=== PATIENT | female | born 1940 | race Caucasian/White ===

== ENCOUNTER 2023-04-27 10:26 | Emergency (ER) | payer MEDICARE, BC, SELFPAY ==
[2023-04-27 10:37] VITALS: BP 142/65
[2023-04-27 10:39] VITALS: BP 142/65
--- NOTE | 2023-04-27 10:39 | ED.GENMED ---
History of Present Illness
General
Chief Complaint: Back Pain
Source: patient
Exam Limitations: none
Time Seen by Provider: 04/27/23 10:38
Nursing documentation reviewed up to this point in time: agreed with
Travel History
Have you had any contact with someone who has COVID-19?: No
Do you have any symptoms of coronavirus? Fever > 100 degrees, chills, cough, shortness of breath, sore throat, loss of taste or smell, muscle aches, or headache?: No
History of Present Illness
History of Present Illness:
82-year-old female with history of Afib on eliquis, COPD, lung cancer, pleural effusions in the past with thoracentesis, chronic cough, home oxygen 3 L nasal cannula, pneumonia, from home is here for stabbing left mid to upper back pain 'at my bra
line' starting 2 days ago. No recollection of injury. States she cleaned her bedroom 2 days ago and change of the linens.
Patient is followed at [facility].
She denies fever or chills. Denies abdominal pain.
Past History
Past History
ED Past Medical History: Cancer (lung), CHF, COPD, HTN, Hypothyroidism, Other (Pulmonary HTN, Anemia, PNA, R pleural effusion) and Other (CKD); Negative [place]
ED Past Surgical History: Appendectomy, Gynecological and Other (thyroidectomy, AAA repair)
Social History
Tobacco: Former smoker
Alcohol: None
Drug: None
Personal:
Living: with family (daughter is staying with her)
Employment: Retired
Family History
Family History: Other (With lymphoma grandfather with lung cancer, grandfather with diabetes, father with a stroke )
Review of Systems
Review of Systems
Allergies reviewed?: Yes
All Other Systems: ROS reviewed and negative except as documented in HPI and ROS
Constitutional: Reports fatigue; Denies fever
Respiratory: Reports cough and trouble breathing
Cardiac: Denies chest pain
ABD/GI: Denies abdominal pain, nausea, vomiting or diarrhea
: Denies dysuria or difficulty voiding
Musculoskeletal: Denies edema
Skin: Reports no symptoms
Neurological: Reports no symptoms
Phy Exam
Physical Exam
Physical Exam:
GENERAL: No acute distress. A&Ox3.
CONSTITUTIONAL: Afebrile.
EYES: Clear, conjunctivae normal
ENMT: moist mucus membranes, Pharynx nl
RESPIRATORY: Regular respirations, labored respirations . Lungs with expiratory rhonchi throughout, worse in the right upper region. 3 L nasal cannula O2 chronically
CARDIOVASCULAR: Regular rate and rhythm, no murmurs, no rubs.
GI: Soft, nontender, normal BS
MUSCULOSKELETAL: Significant kyphosis. Tender upper left parathoracic area. Moves with ease. Well perfused.
SKIN: Warm, dry, pale
PSYCH: Normal mood and affect. Well kept, interactive and appropriate
NEUROLOGIC: Awake, alert and oriented. No focal neurological deficits. Ambulated independently to BR and back slowly but steadily
Course
Orders/Labs/Results
Orders:
Orders
04/27/23 10:31
EKG [Electrocardiogram (*1)] Urgent
Reason for Study: Chest Pain
EKG- Treatment ONCE
04/27/23 10:39
CR Chest - 2 Views Urgent
Comment:
Reason For Exam: L mid to upper back pain
04/27/23 10:47
Complete Blood Count/With Diff Urgent
Comprehensive Metabolic Panel Urgent
NT-proBNP Urgent
Troponin I Urgent
04/27/23 11:37
Hydrocodone 5/APAP 325 [[place] 5/325] 1 tablet PO NOW STA
Abnormal Lab Results
04/27/23
10:47
RBC 3.69 L 10^6/uL
(4.20-5.40)
Hgb 11.5 L g/dL
(12.0-16.0)
Hct 35.6 L %
(37.0-47.0)
MCH 31.2 H pg
(27.0-31.0)
MCHC 32.3 L g/dL
(33.0-37.0)
RDW 16.1 H %
(11.5-14.5)
Abs Immat Gran (auto) 0.1 H 10^3/uL
(0-0.05)
Absolute Neuts (auto) 8.9 H 10^3/uL
(1.4-6.5)
Absolute Lymphs (auto) 0.5 L 10^3/uL
(1.2-3.4)
Absolute Monos (auto) 0.7 H 10^3/uL
(0.1-0.6)
Immature Gran % 0.6 H %
(0-0.5)
Neutrophils % 86.0 H %
(42.2-75.2)
Lymphocytes % 4.7 L %
(20.5-51.1)
Carbon Dioxide 32 H mmol/L
(22-30)
BUN 33 H mg/dl
(7-17)
Total Protein 5.9 L g/dl
(6.3-8.2)
Albumin 3.2 L g/dl
(3.5-5.0)
04/27/23 10:47
04/27/23 10:47
Vital Signs
Initial and Last Documented VS:
Initial Vital Signs
Temp Pulse Resp BP Pulse Ox
98.6 F 63 16 142/65 99
04/27/23 10:37 04/27/23 10:37 04/27/23 10:37 04/27/23 10:37 04/27/23 10:37
Last Documented Vital Signs
Temp Pulse Resp BP Pulse Ox
98.4 F 64 15 136/60 99
04/27/23 14:02 04/27/23 14:02 04/27/23 14:02 04/27/23 14:02 04/27/23 14:02
MDM/Problems Addressed
Differential Diagnosis Includes:
COPD exacerbation, pneumonia, pleural effusion, AAA, thoracic vertebrae fracture
MDM/Problems Addressed:
82-year-old female with history of Afib on Eliquis, COPD, lung cancer, pleural effusions in the past with thoracentesis, chronic cough, home oxygen 3 L nasal cannula, pneumonia, from home is here for stabbing left mid to upper back pain at my bra
line' starting 2 days ago. No recollection of injury. States she cleaned her bedroom 2 days ago and change of the linens.
Patient is followed at [facility].
She denies fever or chills. Denies abdominal pain.
04/27/2023 1159 AM
CBC with no clinically significant abnormality
CMP with no clinically significant abnormality. BUN 33 which is slightly higher than her baseline. Encouraged her to increase her fluid intake
Chest x-ray: Radiology report read: IMPRESSION:
Stable mild CHF and [id number] right pleural effusion. Probable chronic right perihilar scarring.
There is a new mild T6 compression deformity. Pt states 'it doesn't take much for me to fracture a vertebrae.' Pain associated with changing her linens 2 days ago as most likely cause.
In further discussion with patient, she was supposed to see pain management but she was told she has to get an MRI first. She has canceled 2 previous MRI appointments. I put her on the phone today to make an appointment.
Patient states gabapentin and tramadol 'do nothing' for her pain. I gave her a Vicodin here and will call her prescription for hydrocodone No. 6 tabs to her pharmacy to get her through the weekend. She has a caregiver at bedside who will stay with
her for the next 2 days.
Clinically she is not fluid overloaded, she is in fact, most likely mildly dehydrated with elevated BUN.
Plan: discharge, keep MRI and pain management appointments, short regimen of Hydrocodone
*Critical Care Note
Total Time (30-74mins, 75-104mins- exclusive of procedures): Not Applicable
ED Attending Note
-
Portions of this chart may have been created with voice recognition software.� Occasional wrong word or��sound alike� substitutions may have occurred due to the inherent limitations of voice recognition software.
Discharge Plan
Departure
Patient Disposition: Home (Routine Discharge)
Date of Disposition: 04/27/23
Time of Disposition: 12:07
Patient with high blood pressure during this ER visit?: No
Condition: Fair
Discharge Problem:
Compression fracture of T6 vertebra
Instructions: Vertebral compression fracture
Prescriptions:
New
hydrocodone-acetaminophen 5-325 mg tablet
1 tab PO Q6H PRN (Reason: Pain) Qty: 7 0RF
No Action
ipratropium bromide 1 SPRAY spray,non-aerosol
2 spray intranasal TID
albuterol sulfate 1 PUFF HFA aerosol inhaler
2 puff inhalation R Q4HPRN PRN (Reason: shortness of breath)
ydiibqukfav-gvphpdlgp-wulnuuhs [Trelegy Ellipta] 1 EACH blister with device
1 puff inhalation R DAILY
bisacodyl [OneLAX Bisacodyl] 10 MG suppository
10 mg AR DAILYPRN PRN (Reason: constipation) 0RF
fexofenadine [Griselda] 180 MG tablet
180 mg PO DAILY Qty: 0
polyethylene glycol 3350 17 GRAMS powder in packet
17 grams PO DAILYPRN PRN (Reason: constipation)
acetaminophen [Tylenol Extra Strength] 500 MG tablet
500 mg PO Q6HPRN PRN (Reason: mild pain/fever)
atorvastatin 40 MG tablet
40 mg PO QPM
sucralfate 1 GRAM tablet
1 g PO BID@1200,1700
Patient Comments:
must be crushed into applesauce
tamsulosin 0.4 MG capsule
0.4 mg PO DAILY
ferrous sulfate [FeroSul] 325 MG tablet
325 mg PO DAILY@1200
furosemide 40 MG tablet
40 mg PO DAILY Qty: 30 0RF
ipratropium-albuterol 3 ML solution for nebulization
3 ml inhalation R Q4HPRN PRN (Reason: sob)
gabapentin 300 MG capsule
300 mg PO TID
apixaban [Eliquis] 5 MG tablet
5 mg PO BID 0RF
diltiazem HCl 180 MG capsule,extended release 24hr
180 mg PO DAILY
aspirin 81 MG tablet,delayed release (DR/EC)
81 mg PO DAILY
denosumab [Prolia] 60 MG/ML syringe
60 mg SC [id number]
tramadol 50 MG tablet
50 mg PO BIDPRN PRN (Reason: moderate to severe pain) Qty: 6 0RF
levothyroxine 100 MCG tablet
100 mcg PO DAILY@0600 0RF
potassium chloride [Klor-Con M20] 20 MEQ tablet,ER particles/crystals
40 meq PO DAILY 0RF
pantoprazole 40 MG tablet,delayed release (DR/EC)
40 mg PO BID 0RF
mupirocin 1 APPLIC ointment
1 applic topical DAILY 0RF
metoprolol tartrate 25 MG tablet
25 mg PO BID 0RF
Referrals:
Deangelo Goodwin MD [Active] - Next open appointment
Angie Peters MD [Family Provider] -
Activity Restrictions/Additional Instructions:
As we discussed, I sent a prescription to your pharmacy for [place] which is hydrocodone to be used for significant pain.
This drug can make you sleepy and slow the reflexes, therefore you are at higher risk for falling, use your walker at all times when up and around and do not take it with the tramadol.
Keep your MRI appointment then call Dr. Goodwin and make an appointment for pain management
Tylenol 650 mg up to 3 times a day may help take the edge off your pain
See your primary doctor Sunday if you need any further pain medication
Interventions
Interventions:
*Risk Screen - Suicide Last Done: 04/27/23 10:37
*General Assessment Last Done: 04/27/23 10:37
*Neglect/Abuse Screening Last Done: 04/27/23 10:37
*Nursing Disposition Last Done: 04/27/23 14:03
ED-Musculoskeletal Assessment Last Done: 04/27/23 11:37
Discharge Date and Time
Discharge Date/Time: 04/27/23 14:04
[2023-04-27 10:55] LABS: % Basophils 0.3 % (0-2); % Eosinophils 1.9 % (0-6); % Immature Granulocytes 0.6 % (0-0.5); % Lymphocytes 4.7 % (20.5-51.1); % Monocytes 6.5 % (1.7-9.3); Absolute Eosinophils 0.2 10^3/uL (0-0.7); Absolute Immature Granulocytes 0.1 10^3/uL (0-0.05); Absolute Lymphocytes 0.5 10^3/uL (1.2-3.4); Absolute Monocytes 0.7 10^3/uL (0.1-0.6); Absolute Neutrophils 8.9 10^3/uL (1.4-6.5); Hematocrit 35.6 % (37.0-47.0); Hemoglobin 11.5 g/dL (12.0-16.0); Mean Corp Hgb Conc. 32.3 g/dL (33.0-37.0); Mean Corpuscular Hgb 31.2 pg (27.0-31.0); Mean Corpuscular Volume 96.5 fL (81.0-99.0); Mean Platelet Volume 8.9 fL (7.4-10.4); Nucleated Red Blood Cells % 0 %; Platelet Count 169 10^3/uL (130-400); Red Blood Cell Count 3.69 10^6/uL (4.20-5.40); Red Cell Dist. Width 16.1 % (11.5-14.5); White Blood Cell Count 10.4 10^3/uL (4.8-10.8)
[2023-04-27 11:00] VITALS: BP 139/74
[2023-04-27 11:20] LABS: ALT (SGPT) 14 U/L (0-35); AST (SGOT) 17 U/L (14-36); Albumin 3.2 g/dl (3.5-5.0); Alkaline Phosphatase 76 U/L (38-126); Blood Urea Nitrogen 33 mg/dl (7-17); Calcium 8.6 mg/dl (8.4-10.2); Carbon Dioxide 32 mmol/L (22-30); Chloride 101 mmol/L (98-107); Estimated Creatinine Clearance 38 ml/min; Glucose 87 mg/dl (70-99); NT-proBNP 1290 pg/ml; Potassium 4.3 mmol/L (3.5-5.1); Sodium 138 mmol/L (135-145); Total Bilirubin 0.7 mg/dl (0.2-1.3); Total Protein 5.9 g/dl (6.3-8.2); Troponin I < 0.012 ng/ml; eGFR 55.55
[2023-04-27] MEDS: NORCO 5/325 1 TABLET PO (11:58)
[2023-04-27 14:02] VITALS: BP 136/60
== END 2023-04-27 14:04 | disposition home or self-care (01) ==
LOC: EMR 10:26
PROVIDERS: Registered Nurse; EMERGENCY PHYSICIAN Emergency Medicine; FAMILY PHYSICIAN Family Medicine
DX: M48.54XA Collapsed vertebra, not elsewhere classified, thoracic region, initial encounter for fracture (principal); R53.83 Other fatigue; J90 Pleural effusion, not elsewhere classified; I50.9 Heart failure, unspecified; I48.91 Unspecified atrial fibrillation; J44.9 Chronic obstructive pulmonary disease, unspecified; R05.3 Chronic cough; E03.9 Hypothyroidism, unspecified; I27.20 Pulmonary hypertension, unspecified; I13.0 Hypertensive heart and chronic kidney disease with heart failure and stage 1 through stage 4 chronic kidney disease, or unspecified chronic kidney disease; N18.9 Chronic kidney disease, unspecified; M81.0 Age-related osteoporosis without current pathological fracture; M19.90 Unspecified osteoarthritis, unspecified site; D50.9 Iron deficiency anemia, unspecified; Z85.118 Personal history of other malignant neoplasm of bronchus and lung; Z85.850 Personal history of malignant neoplasm of thyroid; Z87.01 Personal history of pneumonia (recurrent); Z85.828 Personal history of other malignant neoplasm of skin; Z92.3 Personal history of irradiation; Z87.891 Personal history of nicotine dependence; Z99.81 Dependence on supplemental oxygen; Z79.01 Long term (current) use of anticoagulants; Z79.82 Long term (current) use of aspirin
CPT/HCPCS: 99283; 71046; 80053; 83880; 84484; 85025; 93005

== ENCOUNTER → 2023-06-05 11:57 | Outpatient (REF) | payer MEDICARE, BC, SELFPAY | LOC: MRI 3T 11:57 | PROVIDERS: ATTENDING PHYSICIAN Psychiatry & Neurology Neurology; FAMILY PHYSICIAN Family Medicine | DX: M54.6 Pain in thoracic spine (principal) | CPT/HCPCS: 72146 ==

== ENCOUNTER → 2023-11-13 13:04 | Outpatient (REF) | payer MEDICARE, BC, SELFPAY | LOC: RAD 13:04 | PROVIDERS: ATTENDING PHYSICIAN Internal Medicine Cardiovascular Disease; FAMILY PHYSICIAN Family Medicine | DX: J44.9 Chronic obstructive pulmonary disease, unspecified (principal) | CPT/HCPCS: 71046 ==

== ENCOUNTER → 2023-12-18 12:54 | Outpatient (REF) | payer MEDICARE, BC, SELFPAY ==
[2023-12-18 13:36] LABS: % Basophils 0.3 % (0-2); % Eosinophils 1.4 % (0-6); % Immature Granulocytes 1.5 % (0-0.5); % Lymphocytes 5.6 % (20.5-51.1); % Monocytes 7.7 % (1.7-9.3); % Neutrophils 83.5 % (42.2-75.2); Absolute Eosinophils 0.2 10^3/uL (0-0.7); Absolute Immature Granulocytes 0.2 10^3/uL (0-0.05); Absolute Lymphocytes 0.6 10^3/uL (1.2-3.4); Absolute Monocytes 0.8 10^3/uL (0.1-0.6); Absolute Neutrophils 9.1 10^3/uL (1.4-6.5); Hematocrit 38.3 % (37.0-47.0); Hemoglobin 12.3 g/dL (12.0-16.0); Mean Corp Hgb Conc. 32.1 g/dL (33.0-37.0); Mean Corpuscular Hgb 30.7 pg (27.0-31.0); Mean Corpuscular Volume 95.5 fL (81.0-99.0); Nucleated Red Blood Cells % 0 %; Platelet Count 313 10^3/uL (130-400); Red Blood Cell Count 4.01 10^6/uL (4.20-5.40); Red Cell Dist. Width 13.1 % (11.5-14.5); White Blood Cell Count 10.9 10^3/uL (4.8-10.8)
[2023-12-18 14:12] LABS: ALT (SGPT) 22 U/L (0-35); AST (SGOT) 19 U/L (14-36); Alkaline Phosphatase 78 U/L (38-126); Blood Urea Nitrogen 65 mg/dl (7-17); Calcium 10.3 mg/dl (8.4-10.2); Chloride 85 mmol/L (98-107); Glucose 83 mg/dl (70-99); Iron 83 ug/dl (37-170); Phosphorus 3.5 mg/dl (2.5-4.5); Potassium 3.7 mmol/L (3.5-5.1); Sodium 140 mmol/L (135-145); Total Bilirubin < 0.1 mg/dl (0.2-1.3); Total Protein 7.2 g/dl (6.3-8.2); eGFR 31.41
[2023-12-18 14:21] LABS: Carbon Dioxide 39 mmol/L (22-30)
[2023-12-18 14:40] LABS: TSH Reflex To Free T4 2.23 uIU/ml (0.47-4.68)
== END ==
LOC: REG 12:54
PROVIDERS: ATTENDING PHYSICIAN Internal Medicine Cardiovascular Disease; FAMILY PHYSICIAN Family Medicine; OTHER PHYSICIAN Radiology Radiation Oncology; REFERRING PHYSICIAN Internal Medicine Pulmonary Disease
DX: R06.02 Shortness of breath (principal); I48.0 Paroxysmal atrial fibrillation; J90 Pleural effusion, not elsewhere classified; I10 Essential (primary) hypertension; J44.9 Chronic obstructive pulmonary disease, unspecified; I36.1 Nonrheumatic tricuspid (valve) insufficiency
CPT/HCPCS: 36415; 80053; 83540; 84100; 84443; 85025

== ENCOUNTER → 2023-12-25 14:54 | Outpatient (REF) | payer MEDICARE, BC, SELFPAY ==
[2023-12-25 16:57] LABS: Albumin 3.6 g/dl (3.5-5.0); Blood Urea Nitrogen 34 mg/dl (7-17); Calcium 8.8 mg/dl (8.4-10.2); Carbon Dioxide 37 mmol/L (22-30); Chloride 97 mmol/L (98-107); Glucose 84 mg/dl (70-99); Potassium 4.3 mmol/L (3.5-5.1); Sodium 143 mmol/L (135-145); eGFR 49.24
== END ==
LOC: REG 14:54
PROVIDERS: ATTENDING PHYSICIAN Internal Medicine Cardiovascular Disease; FAMILY PHYSICIAN Family Medicine
DX: I50.32 Chronic diastolic (congestive) heart failure (principal); N18.31 Chronic kidney disease, stage 3a
CPT/HCPCS: 36415; 80069

== ENCOUNTER → 2024-01-01 13:28 | Outpatient (REF) | payer MEDICARE, BC, SELFPAY ==
[2024-01-01 17:09] LABS: Blood Urea Nitrogen 45 mg/dl (7-17); Calcium 9.1 mg/dl (8.4-10.2); Carbon Dioxide 40 mmol/L (22-30); Chloride 88 mmol/L (98-107); Glucose 172 mg/dl (70-99); Potassium 3.6 mmol/L (3.5-5.1); Sodium 139 mmol/L (135-145); eGFR 36.87
[2024-01-01 17:12] LABS: Free T4 1.53 ng/dl (0.78-2.19)
[2024-01-01 17:26] LABS: TSH 1.97 uIU/ml (0.47-4.68)
== END ==
LOC: REG 13:28
PROVIDERS: ATTENDING PHYSICIAN Internal Medicine Cardiovascular Disease; FAMILY PHYSICIAN Family Medicine; REFERRING PHYSICIAN Internal Medicine Endocrinology, Diabetes & Metabolism
DX: I50.33 Acute on chronic diastolic (congestive) heart failure (principal); R06.02 Shortness of breath; I10 Essential (primary) hypertension; E03.9 Hypothyroidism, unspecified
CPT/HCPCS: 36415; 80048; 84439; 84443

== ENCOUNTER 2024-01-24 17:14 | Inpatient (IN) | payer MEDICARE, BC, SELFPAY ==
[2024-01-24] VITALS (12 sets, daily range): BP systolic 92–130; BP diastolic 57–88; PULSE 3–83; BMI 24.8; BMI 25.0
--- NOTE | 2024-01-24 13:26 | ED.GENMED ---
History of Present Illness
General
Chief Complaint: Breathing Problem
Time Seen by Provider: 01/24/24 13:02
History of Present Illness
History of Present Illness:
83-year-old female with history of CHF on 4 L O2, hypertension, COPD, A-fib on Eliquis presenting to the emergency department for difficulty breathing. Patient reports in the past 3 days she has had increased difficulty breathing. Denies
associated chest pain. Does note mild cough. Denies fever. Patient reports that she is currently being treated for a urinary tract infection. Her granddaughter at home has been giving her more fluid, believes that she may have fluid overloaded
her on accident. Patient does note that she has had a few falls in the past week, denies head injury or loss of consciousness. Patient arrives by medics, noted to be hypoxic, presents in a nonrebreather. Patient denies additional acute medical
complaints.
Past History
Past History
ED Past Medical History: Cancer (lung), CHF, COPD, HTN, Hypothyroidism, Other (Pulmonary HTN, Anemia, PNA, R pleural effusion) and Other (CKD); Negative [place]
ED Past Surgical History: Appendectomy, Gynecological and Other (thyroidectomy, AAA repair)
Social History
Tobacco: Former smoker
Alcohol: None
Drug: None
Personal:
Living: with family (daughter is staying with her)
Employment: Retired
Family History
Family History: Other (With lymphoma grandfather with lung cancer, grandfather with diabetes, father with a stroke )
Phy Exam
Physical Exam
Physical Exam:
General: Well-appearing, no clinical signs of dehydration, nontoxic and in no acute distress
HEENT: protecting airway
Neck: appears supple
CV: Normal heart rate, regular rhythm
Resp: On BiPAP, mild increased work of breathing, rhonchorous breath sounds bilaterally
Abd: Soft and non-distended, no tenderness to palpation, normal bowel sounds
Extremities: No deformities, no swelling, no erythema. Multiple skin tears to extremities
Neuro: alert, no focal neurologic deficit
: deferred
Rectal: deferred
Psych: Normal affect
Skin: Intact
Scores
Heart Failure Risk
Heart Failure Risk Score: Yes
History of Stroke or TIA: No
History of intubation for respiratory distress: No
Heart rate on ED arrival >/= 110: Yes
SaO2 <90% on arrival on room air: Yes
HR >/=110 during 3min walk test (or too ill to perform test): Yes
ECG has acute ischemic changes: No
Urea >/=12mmol/L (BUN 33.6mg/dL): No
Serum CO2>/=35mmol/L: Yes
Troponin I or T elevated to OR Level (0.4mg/dL): No
NT-proBNP >/=5,000ng/L (5,000pg/ml): Yes
HF Risk Score: 6
Admission Status: VERY HIGH RISK 55.3% Consider admission to hospital
Course
Orders/Labs/Results
Orders:
Orders
01/24/24 12:59
Electrocardiogram (*1) Urgent
Reason for Study: Other
Other Reason for Exam: Respiratory Distress
Cardiac Monitoring- Treatment ONCE
EKG- Treatment ONCE
IV Insert/Care/Rem.- Treatment PRN
O2 Therapy [RESP] Urgent
Titrate/Wean O2 to maintain O2 sat greater than (%): 93
Special Instructions: TO MAINTAIN CONTINUOUS O2 SATS >/= 93%
01/24/24 13:13
Complete Blood Count/With Diff Urgent
Comprehensive Metabolic Panel Urgent
NT-proBNP Urgent
Troponin I Urgent
Venous Blood Gas Urgent
%Oxygen/Room Air: 30
01/24/24 14:20
CR Chest Portable - 1 View Urgent
Comment:
Reason For Exam: chf
Reason Study Needs to be Portable: Patient Unstable
01/24/24 Dinner
Cholesterol Lowering
At Your Request: Limited Participation
Fluid Restriction: 1440 mL/day (48 oz)
Cholesterol Lowering: Sodium, 2 Gram
01/24/24 15:03
Furosemide [Lasix] 40 mg IV ONCE ONE
01/24/24 15:39
Venous Blood Gas Urgent
%Oxygen/Room Air: 21
01/24/24 16:57
Dexamethasone Sod Phosphate [Decadron] 6 mg IV NOW STA
Ipratropium/Albuterol Sulfate [Duoneb] 3 ml INH R NOW ONE
01/24/24 17:01
Admit/Transfer Patient As Directed
Co-Sign Provider:
Level of Care: Inpatient admission
Assign to:: IMU- Intermediate Care
Physician / Group: Mary Stiles
Diagnosis: heart failure and COPD exacerbation
Reason for Hospitalization: acute on chronic hypoxic/hypercarbic resp failure
Expected length of stay greater than two midnights?: Yes
ELOS- Estimated Length of Stay in days: 3
I certify the patient meets the requirements for IP care: Yes
01/24/24 17:02
PRN Pain Medication Management As Directed
May give lesser potent ordered pain med per pt: Yes
preference::
Protocol:: Medication orders for pain may be administered in a
manner that supports deferring to patient preference
when the pt is:
- Requesting an ordered lesser potent pain medication.
Least to most potent pain medications are defined
as: acetaminophen < NSAID < tramadol < opioids
(morphine, oxycodone, hydromorphone).
- Requesting a lesser dose of the same medication IF
ORDERED.
- Requesting a less intrusive route of administration
if both routes are prescribed by the provider (PO <
IV).
01/24/24 17:03
Code Status As Directed
Resuscitation Status: Do not resuscitate
Reached after discussion with pt or family/Healthcare POA: Yes
01/24/24 17:04
DNR Bracelet Application ONCE
01/24/24 17:11
COVID-19 Antigen Routine
Source: Nasal Swab
Urinalysis Reflex To Culture Urgent
Date Specimen was Collected: 01/24/24
Time Specimen was Collected: 17:05
Urine Microscopic Reflex Cult Urgent
Influenza A+B Rapid Molecular Routine
SARAH Source: Nasal Swab
Specimen Description:
Urine Culture Urgent
SARAH Source: U
Specimen Description:
Date Specimen was Collected: 01/24/24
Time Specimen was Collected: 17:05
01/24/24 17:59
Ipratropium/Albuterol Sulfate [Duoneb] 3 ml INH R Q4HPRN PRN
Polyethylene Glycol Powder [Miralax] 17 grams PO DAILYPRN PRN
methocarbamol See Dose Instructions PO TIDPRN PRN
01/24/24 17:59
CARDIOLOGY CONSULT Routine
Consulting Provider: Rajan Vega
Was physician already notified: Yes
HF DIETARY CONSULT Routine
HF EDUCATOR CONSULT Routine
Comment:
PULMONARY CONSULT Routine
Consulting Provider: Darian Cruz
Was physician already notified: Yes
Sputum Culture [Respiratory Culture/Gram Stain] Routine
SARAH Source: Sputum
Specimen Description:
Activity As Directed
Activity Level: As Tolerated
Activity As Directed
Activity Level: As Tolerated
Intake/ Output As Directed
Frequency: Per unit guidelines
Intake/ Output As Directed
Frequency: Per unit guidelines
Patient Education As Directed
Type: CHF folder
Comment: give on admission. Document in Interdisciplinary Education record
Sleep Apnea Assessment by RN As Directed
Comment:
Physician Instructions:
Vital Signs As Directed
Frequency: Other
Additional Instructions:: Q12 or per unit guidelines if more frequent.
Vital Signs As Directed
Frequency: Per unit guidelines
Weight As Directed
Frequency: Daily
Type of Scale: Standing Scale
Comment: Daily morning weight. If unable to stand, use balanced bed scale.
Weight As Directed
Frequency: Once
Type of Scale: Standing Scale
Comment: Upon Admission. If unable to stand, use balanced bed scale.
Acapella [Rx Pep / Acapela] [RESP] Routine
Copd Education [RESP] Routine
Pulse Ox/cont/shift [RESP] Routine
Quantity: 1
Special Instructions: Daily pulse oximetry at rest. If greater than 92% at rest also obtain pulse oximetry
while ambulating as tolerated.
Ot Eval And Treat Routine
Pt Eval And Treat Routine
Activity Level: As Tolerated
01/24/24 18:00
Atorvastatin [Lipitor] 40 mg PO QPM
01/24/24 20:00
Troponin I Q6H
Comment: at admission & every 6 hours x 2 (3 total), ECG to be done with each level
Apixaban [Eliquis] 2.5 mg PO BID
Gabapentin [Neurontin] 300 mg PO BID
Guaifenesin [Mucinex] 600 mg PO Q12
Ipratropium/Albuterol Sulfate [Duoneb] 3 ml INH R QID
Metoprolol [Lopressor] 25 mg PO BID
Pantoprazole [Protonix] 40 mg PO BID
01/24/24 22:00
Acetaminophen [Tylenol] 1,000 mg PO TID
01/25/24 02:00
Troponin I Q6H
Comment: at admission & every 6 hours x 2 (3 total), ECG to be done with each level
01/25/24 06:00
Echo 2D MMode Color/Doppler IN AM
Reason for Study: heart failure
Basic Metabolic Panel IN AM
Cardiovascular Evaluation IN AM
Complete Blood Count/No Diff IN AM
Magnesium IN AM
Dexamethasone Sod Phosphate [Decadron] 4 mg IV Q8H
Levothyroxine [Synthroid] 88 mcg PO DAILY @ 0600
01/25/24 08:00
Escitalopram Oxalate [Lexapro] 5 mg PO DAILY
Furosemide [Lasix] 80 mg IV DAILY
LevoFLOXacin [Levaquin] 250 mg PO DAILY
01/26/24 06:00
Basic Metabolic Panel IN AM
01/27/24 06:00
Basic Metabolic Panel IN AM
Abnormal Lab Results
01/24/24 01/24/24 01/24/24
13:13 15:39 17:11
RBC 3.43 L 10^6/uL
(4.20-5.40)
Hgb 10.6 L g/dL
(12.0-16.0)
Hct 34.4 L %
(37.0-47.0)
MCV 100.3 H fL
(81.0-99.0)
MCHC 30.8 L g/dL
(33.0-37.0)
Abs Immat Gran (auto) 0.1 H 10^3/uL
(0-0.05)
Absolute Neuts (auto) 7.7 H 10^3/uL
(1.4-6.5)
Absolute Lymphs (auto) 0.5 L 10^3/uL
(1.2-3.4)
Immature Gran % 1.5 H %
(0-0.5)
Neutrophils % 85.2 H %
(42.2-75.2)
Lymphocytes % 5.3 L %
(20.5-51.1)
VBG pH 7.25 L 7.26 L
(7.32-7.43) (7.32-7.43)
VBG pCO2 80 H* mmHg 81 H* mmHg
(35-48) (35-48)
VBG HCO3 35.1 H mmol/L 36.3 H mmol/L
(22-27) (22-27)
Chloride 97 L mmol/L
(98-107)
Carbon Dioxide 37 H mmol/L
(22-30)
BUN 33 H mg/dl
(7-17)
Creatinine 1.1 H mg/dL
(0.6-1.0)
Troponin I 0.045 H* ng/ml
Ur Occult Blood Reflex Trace A
(Negative)
Leukocyte Esterase Rfl 2+ A
(Negative)
Urine WBC (Reflex) 26-30 A /HPF
(0-5)
Urine Bacteria (Reflex) Moderate A
(Negative)
01/24/24 13:13
01/24/24 13:13
Vital Signs
Initial and Last Documented VS:
Initial Vital Signs
Temp Pulse Resp BP Pulse Ox
98.2 F 82 18 122/66 95
01/24/24 13:00 01/24/24 13:00 01/24/24 13:00 01/24/24 13:00 01/24/24 13:00
Last Documented Vital Signs
Temp Pulse Resp BP Pulse Ox
98.2 F 89 21 92/79 95
01/24/24 13:00 01/24/24 19:19 01/24/24 19:19 01/24/24 19:01 01/24/24 19:19
MDM/Problems Addressed
MDM/Problems Addressed:
83-year-old female with history of COPD and CHF on 4 L O2 presenting to the emergency department with shortness of breath. Vital signs on arrival significant for hypoxia.
On exam, patient placed on BiPAP, improvement in work of breathing and saturations. Suspected acute on chronic CHF. No wheezing. Patient afebrile, without significant cough, lower suspicion for pneumonia. Plan for laboratory analysis, chest
x-ray imaging, possible diuresis.
15:40 -labs are consistent with hypercapnia, elevated BNP, and pulmonary edema on chest x-ray. Will start IV diuresis. Patient currently taking a break from BiPAP. Will continue to reassess.
*EKG
Interpreted by ED Provider?: Yes
EKG Intrepretation Date: 01/24/24
EKG Intrepretation Time: 13:32
Interpretation: normal
Heart Rate: 83
Rate: normal
Rhythm: sinus
[place]: normal axis
Interval: normal interval
QRS Pattern: normal QRS
Ischemia: no ischemia
*Critical Care Note
Total Time (30-74mins, 75-104mins- exclusive of procedures): 46
comment:
The high probability of a clinically significant, sudden or life threatening deterioration of the respiratory system(s) required my full and direct attention, intervention and personal management. The aggregate critical care time was 46 minutes.
This time is in addition to time spent performing reported procedures but includes the following:
[x] Data Review and interpretation
[x] Patient assessment and monitoring of vital signs
[x] Documentation
[x] Medication orders and management
ED Attending Note
-
Portions of this chart may have been created with voice recognition software.� Occasional wrong word or��sound alike� substitutions may have occurred due to the inherent limitations of voice recognition software.
Discharge Plan
Departure
Patient Disposition: Admit
Date of Disposition: 01/24/24
Time of Disposition: 15:49
Presentation/result/management discussed w/ accepting MD/DO: Hospitalist
Patient with high blood pressure during this ER visit?: No
Condition: Good
Discharge Problem:
Acute on chronic congestive heart failure
Interventions
Interventions:
*Risk Screen - Suicide Last Done: 01/24/24 13:00
*General Assessment Last Done: 01/24/24 13:00
*Neglect/Abuse Screening Last Done: 01/24/24 13:00
*ED COVID-19 Vaccine History Last Done: 01/24/24 15:30
ED- Cardiac Assessment Last Done: 01/24/24 13:23
ED- Pulmonary Assessment Last Done: 01/24/24 13:23
[2024-01-24 13:29] LABS: % Basophils 0.4 % (0-2); % Eosinophils 2.2 % (0-6); % Immature Granulocytes 1.5 % (0-0.5); % Lymphocytes 5.3 % (20.5-51.1); % Monocytes 5.4 % (1.7-9.3); % Neutrophils 85.2 % (42.2-75.2); Absolute Eosinophils 0.2 10^3/uL (0-0.7); Absolute Immature Granulocytes 0.1 10^3/uL (0-0.05); Absolute Lymphocytes 0.5 10^3/uL (1.2-3.4); Absolute Monocytes 0.5 10^3/uL (0.1-0.6); Absolute Neutrophils 7.7 10^3/uL (1.4-6.5); Hematocrit 34.4 % (37.0-47.0); Hemoglobin 10.6 g/dL (12.0-16.0); Mean Corp Hgb Conc. 30.8 g/dL (33.0-37.0); Mean Corpuscular Hgb 30.9 pg (27.0-31.0); Mean Corpuscular Volume 100.3 fL (81.0-99.0); Mean Platelet Volume 9.3 fL (7.4-10.4); Nucleated Red Blood Cells % 0 %; Platelet Count 279 10^3/uL (130-400); Red Blood Cell Count 3.43 10^6/uL (4.20-5.40); Red Cell Dist. Width 14.5 % (11.5-14.5); White Blood Cell Count 9.1 10^3/uL (4.8-10.8)
[2024-01-24 13:30] LABS: Venous Blood Gas B.E. 5.7 mmol/L (-4 to +4); Venous Blood Gas HCO3 35.1 mmol/L (22-27); Venous Blood Gas O2 Sat % 61.1 %; Venous Blood Gas pH 7.25 (7.32-7.43); Venous Blood Gas pO2 35 mmHg (30-50)
[2024-01-24 13:34] LABS: Venous Blood Gas pCO2 80 mmHg (35-48)
[2024-01-24 13:46] LABS: ALT (SGPT) 18 U/L (0-35); AST (SGOT) 21 U/L (14-36); Albumin 3.5 g/dl (3.5-5.0); Alkaline Phosphatase 98 U/L (38-126); Blood Urea Nitrogen 33 mg/dl (7-17); Calcium 8.9 mg/dl (8.4-10.2); Carbon Dioxide 37 mmol/L (22-30); Chloride 97 mmol/L (98-107); Glucose 98 mg/dl (70-99); Potassium 5.1 mmol/L (3.5-5.1); Sodium 143 mmol/L (135-145); Total Bilirubin 0.3 mg/dl (0.2-1.3); Total Protein 6.7 g/dl (6.3-8.2); eGFR 49.24
[2024-01-24 14:04] LABS: NT-proBNP 8220 pg/ml; Troponin I 0.045 ng/ml
[2024-01-24] MEDS: LASIX 40 MG IV (15:25)
[2024-01-24 15:50] LABS: Venous Blood Gas B.E. 7.2 mmol/L (-4 to +4); Venous Blood Gas HCO3 36.3 mmol/L (22-27); Venous Blood Gas O2 Sat % 65.1 %; Venous Blood Gas pH 7.26 (7.32-7.43); Venous Blood Gas pO2 36 mmHg (30-50)
[2024-01-24 15:52] LABS: Venous Blood Gas pCO2 81 mmHg (35-48)
--- NOTE | 2024-01-24 16:14 | HPS.HSE ---
Addendum entered and electronically signed by Mary Stiles MD 01/24/24 17:22:
code status updated - patient OK with emergent intubation
Bruising post fall
-patient was hospitalized at [facility] - no fractures
-she was prescribed Methocarbamol last week - may be contributing to weakness, feels it's not helpin significantly - will make only PRN
-schedule Tylenol and Tramadol PRN severe pain (was prescribed at [facility])
-PT/OT as below
Original Note:
Family Physician
-
Family Physician: Angie Peters
Chief Complaint
-
shortness of breath
History of Present Illness
Ms. Shannan Lopes is a 83 yo woman with hx HFpEF, lung CA s/p radiation, COPD, chronic hypoxic respiratory failure on 4L, atrial fibrillation on Eliquis presents to the ER with shortness of breath.
Patient was hospitalized for one night at [facility] last week after she fell on her right side. She was also treated for a UTI and has been on Levaquin. Since then she has been needing assistance for mobility per daughter. She has felt
increasingly weak and over past few days has had increased shortness of breath. + cough with feeling of trapped mucus in chest. No fevers/chills. No chest pain. No nausea/vomiting. No abdominal pain. No increased LE swelling. She hasn't been
weighing herself over past week because she has felt too weak. Denies missing Lasix pills. She has reported some relief with duonebs
She has one more day of Levaquin 250mg to take tomorrow AM.
Medical History
Past Medical History
Past Medical History: Reports Other (HFpEF, COPD, chronic hypoxic respiratory failure on 4L, atrial fibrillation on Eliquis, PAD s/p fem-fem bypass 2020, HTN, lung CA s/p radiation)
Past Surgical History: Reports Other (see above )
Social History
Tobacco: Former Smoker
Alcohol: None
Family History
Family History: Not pertinent
Allergies / Home Medications
Allergies reflects when Allergies were last updated in [facility].
Home Medications with original date entered in [facility]
Allergy/Medication List:
Allergies
Allergy/AdvReac Type Severity Reaction Status Date / Time
No Known Allergies Allergy Verified 04/27/23 10:42
Home Medications
albuterol sulfate 90 mcg/actuation aerosol inhaler 2 puff inhalation R Q4HPRN PRN shortness of breath 09/05/19
polyethylene glycol 3350 17 gram oral powder packet 17 grams PO DAILYPRN PRN constipation 11/15/20
acetaminophen 500 mg tablet (Tylenol Extra Strength) 500 mg PO Q6HPRN PRN mild pain/fever 11/23/20
atorvastatin 40 mg tablet 40 mg PO QPM High cholesterol 12/03/20
ferrous sulfate 325 mg (65 mg iron) tablet (FeroSul) 325 mg PO NOON Supplement 12/29/20
gabapentin 300 mg capsule 300 mg PO BID Neurological Condition 01/18/21
ipratropium 0.5 mg-albuterol 3 mg (2.5 mg base)/3 mL nebulization soln 3 ml inhalation R Q4HPRN PRN sob 01/18/21
denosumab 60 mg/mL subcutaneous syringe (Prolia) 60 mg SC [id number] Osteoporosis 05/06/21
apixaban 2.5 mg tablet (Eliquis) 2.5 mg PO BID Blood Clot Prevention/Tx 01/24/24
escitalopram oxalate 5 mg tablet 5 mg PO DAILY depression/anxiety 01/24/24
fexofenadine 180 mg tablet 180 mg PO DAILY Allergies 01/24/24
fluticasone fur. 200 mcg-umeclid 62.5 mcg-vilant 25 mcg inhalat.powder (Trelegy Ellipta) 1 inh inhalation R DAILY Lung/Breathing Issues 01/24/24
furosemide 80 mg tablet 80 mg PO DAILY Fluid Retention/Swelling 01/24/24
levofloxacin 250 mg tablet 250 mg PO DAILY Infection 01/24/24
levothyroxine 88 mcg tablet 88 mcg PO DAILY Thyroid 01/24/24
methocarbamol 500 mg tablet 500 mg PO TID pain/muscle spasm 01/24/24
metoprolol tartrate 25 mg tablet 25 mg PO BID Blood Pressure 01/24/24
pantoprazole 40 mg tablet,delayed release 40 mg PO BID Gastrointestinal Issue 01/24/24
potassium chloride 20 mEq tablet,extended release(part/cryst) (Klor-Con M) 40 meq PO DAILY Electrolyte Repletion 01/24/24
Review of Systems
-
History Source: Patient
A 12 point ROS was completed and negative except as noted: Yes
Physical Exam
Vital Signs
Vital Signs
Temp Pulse Resp BP Pulse Ox
98.2 F 80 19 112/75 98
01/24/24 13:00 01/24/24 15:00 01/24/24 15:00 01/24/24 15:00 01/24/24 14:45
Physical Exam
General: Conversant and Other (mildly tachynpeic )
HEENT: PERRLA
Respiratory: Wheezes and Rales
Cardiac: S1/S2 and Regular Rhythm
GI: Soft and Non Tender
Musculoskeletal: No Edema
Skin: Warm and Dry; No Rash
Neuro: AO x 3
Psych: Calm
Laboratory Results
-
01/24/24 13:13
01/24/24 13:13
Laboratory Results
Total Bilirubin 0.3 mg/dl (0.2-1.3) 01/24/24 13:13
AST 21 U/L (14-36) 01/24/24 13:13
ALT 18 U/L (0-35) 01/24/24 13:13
Alkaline Phosphatase 98 U/L (38-126) 01/24/24 13:13
Troponin I 0.045 ng/ml H* 01/24/24 13:13
Data Reviewed
-
Diagnostic Radiology: Report Reviewed by me
Lab Data: Labs Reviewed by me
Impression/Plan
-
Ms. Shannan Lopes is a 83 yo woman with hx HFpEF, lung CA s/p radiation, COPD, chronic hypoxic respiratory failure on 4L, atrial fibrillation on Eliquis presents to the ER with shortness of breath found to be in heart failure, suspect COPD
exacerbation contributing as well.
Triage VS: T 98.2, P 82, RR 18, BP 122/66, SpO2 95%
LABS: WBC 9.1, Hg 10.6, PLT 279, Na 143, K+ 5.1, Cl 97, CO2 37, BUN 33, Cr 1.1
AB.26/80/35
CXR
IMPRESSION:
Moderate pulmonary edema with moderate right pleural effusion
Parenchymal airspace disease at the left lung base most consistent with scarring
Acute on chronic hypoxic and hypercarbic respiratory Failure
Acute COPD Exacerbation
Heart Failure preserved EF, Acute Exacerbation
-check flu and Covid
-admit to IMU
-although pCO2 reads 80, patient's bicarb is 37 - chronic retainer - she is awake and conversant without significant distress - do not see need to return to BiPAP at this moment.
-responding to lasix 40mg IV now - will start 80mg IV QD starting tomorrow
-TTE tomorrow AM
-daily weights, strict I/O
-Decadron and Duonebs now - continue Decadron 4mg q8 hours; standing duonebs and PRN
-acapella
-[employer] Trelegy
-Cardiology consult
-Pulmonary consult
Atrial Fibrillation
-continue [employer] Metoprolol, Eliquis
GERD
-[employer] Protonix
Recent UTI
-patient has one more dose of Levaquin - will continue
Anxiety
-[employer] Lexapro
HLD
-[employer] Atorvastatin
DVT PPx Eliquis
DNR - discussed at bedside
76 minutes spent on patient care
[2024-01-24] MEDS: DUONEB 3 ML INH ×2 (17:12→19:03)
[2024-01-24] MEDS: DECADRON 6 MG IV (17:12)
--- NOTE | 2024-01-24 17:12 | CON.CAR ---
Consultation
Consultation Request
Date/Time Consultation Requested: January 24, 2024 4:45 PM
Date/Time Consultation Performed: January 24, 2024 5:20 PM
Requesting Provider: Hospitalist
Performing Provider: Rajan Vega
Reason for Consultation: Heart failure
Medical History
-
Chief Complaint: SOB
History of Present Illness:
83-year-old female with past medical history of paroxysmal A-fib on Eliquis, heart failure preserved ejection fraction, COPD on 4 L nasal cannula, lung cancer, pleural effusions, anemia who is here today for shortness of breath. She tells me that
over the last week she has developed a urinary tract infection. She has not been peeing as much. Additionally, she has been having frequent falls as well. She denies any missed doses of her Lasix. However, she does not think it has been working
as well, and has urgency but unable to pass any urine. Further, she has been trying to drink more because of her urinary tract infection. Additionally, she has noticed significant leg weakness and has fallen multiple times over the last couple of
weeks. Because of her worsening shortness of breath she then presented to the emergency room. In the emergency room she required BiPAP and IV Lasix. She has had significant diuresis and her breathing is much improved.
Past Medical History
Past Medical History: Other (Cancer (lung), CHF, COPD, HTN, Hypothyroidism, Other (Pulmonary HTN, Anemia, PNA, R pleural effusion) and Other (CKD))
Past Surgical History: Other (Appendectomy, Gynecological and Other (thyroidectomy, AAA repair))
Social History
Tobacco: Former Smoker
Alcohol: None
Drug: None
Personal:
Living: Alone
Employment: Retired
Family History
Family History: Reviewed & Not Pertinent
Allergies / Home Medications
Allergy/AdvReac Type Severity Reaction Status Date / Time
No Known Allergies Allergy Verified 04/27/23 10:42
�Medication �Instructions �Recorded �Confirmed �Type
albuterol sulfate 90 mcg/actuation 2 puff inhalation R Q4HPRN PRN 09/05/19 01/24/24 History
aerosol inhaler shortness of breath
polyethylene glycol 3350 17 gram 17 grams PO DAILYPRN PRN 11/15/20 01/24/24 History
oral powder packet constipation
acetaminophen 500 mg tablet 500 mg PO Q6HPRN PRN mild 11/23/20 01/24/24 History
(Tylenol Extra Strength) pain/fever
atorvastatin 40 mg tablet 40 mg PO QPM High cholesterol 12/03/20 01/24/24 History
ferrous sulfate 325 mg (65 mg 325 mg PO NOON Supplement 12/29/20 01/24/24 History
iron) tablet (FeroSul)
gabapentin 300 mg capsule 300 mg PO BID Neurological 01/18/21 01/24/24 History
Condition
ipratropium 0.5 mg-albuterol 3 mg 3 ml inhalation R Q4HPRN PRN sob 01/18/21 01/24/24 History
(2.5 mg base)/3 mL nebulization
soln
denosumab 60 mg/mL subcutaneous 60 mg SC [id number] Osteoporosis 05/06/21 01/24/24 History
syringe (Prolia)
apixaban 2.5 mg tablet (Eliquis) 2.5 mg PO BID Blood Clot 01/24/24 01/24/24 History
Prevention/Tx
escitalopram oxalate 5 mg tablet 5 mg PO DAILY depression/anxiety 01/24/24 01/24/24 History
fexofenadine 180 mg tablet 180 mg PO DAILY Allergies 01/24/24 01/24/24 History
fluticasone fur. 200 mcg-umeclid 1 inh inhalation R DAILY 01/24/24 01/24/24 History
62.5 mcg-vilant 25 mcg Lung/Breathing Issues
inhalat.powder (Trelegy Ellipta)
furosemide 80 mg tablet 80 mg PO DAILY Fluid 01/24/24 01/24/24 History
Retention/Swelling
levofloxacin 250 mg tablet 250 mg PO DAILY Infection 01/24/24 01/24/24 History
levothyroxine 88 mcg tablet 88 mcg PO DAILY Thyroid 01/24/24 01/24/24 History
methocarbamol 500 mg tablet 500 mg PO TID pain/muscle spasm 01/24/24 01/24/24 History
metoprolol tartrate 25 mg tablet 25 mg PO BID Blood Pressure 01/24/24 01/24/24 History
pantoprazole 40 mg tablet,delayed 40 mg PO BID Gastrointestinal Issue 01/24/24 01/24/24 History
release
potassium chloride 20 mEq 40 meq PO DAILY Electrolyte 01/24/24 01/24/24 History
tablet,extended Repletion
release(part/cryst) (Klor-Con M)
Review of Systems
-
All other systems: Negative unless noted
Physical Exam
Vital Signs
Temp Pulse Resp BP Pulse Ox
98.2 F 87 18 103/57 99
01/24/24 13:00 01/24/24 16:45 01/24/24 16:45 01/24/24 16:00 01/24/24 16:15
Lab Results
01/24/24 13:13
01/24/24 13:13
Troponin I 0.045 ng/ml H* 01/24/24 13:13
Tvp-R-Zxnfhuwrrpc Pept 8220 pg/ml 01/24/24 13:13
Physical Exam
General: Well Developed and Respiratory Distress (mild)
HEENT: Normocephalic and Anicteric
Respiratory: Wheezes, Crackles and Other (poor air movement b/l )
Cardiac: Regular Rhythm and Peripheral Edema (trace)
GI: Soft and Non Distended
Musculoskeletal: Edema (trace)
Skin: Warm and Dry
Neuro: AO x 3
Psych: Calm
Impression / Plan
-
A: 83-year-old female with past medical history of paroxysmal A-fib on Eliquis, heart failure preserved ejection fraction, COPD on 4 L nasal cannula, lung cancer, pleural effusions, anemia who is here today for shortness of breath. She was found to
have pulmonary edema as well as pleural effusions on chest x-ray, BNP is elevated, and has responded to IV diuresis with improvement in breathing.
Acute on chronic HFpEF
- BID IV diuresis wiht lasix 40 mg
- K> 4 Mag > 2
- daily standing weights, tells me baseline about 145 lbs
- SGLT2i pricing, but avoid starting given UTI current
- can consider ARB
Moderate pleural effusion
- consider thoracentesis if able
pAF
- on metop stable in SR
- Eliquis 5 mg bid Cr stable at 1.1
HTN
- stable
COPD exacerbation?
- pulmonary to evaluate
UTI with urgency and urinary frequency
- per primary
Weakness and falls
- likelyl needs PT/OT
- per primary
- if frequent falls may consider Watchmen as outpt
Data Reviewed
-
EKG: Tracing Personally Visualized and interpreted (sr)
Radiology: Report Reviewed by me
Medical Tests (Nuc Med, Echo etc): Report Reviewed by me
Labs: Labs Reviewed by me
[2024-01-24 17:22] LABS: Urine Albumin Negative (Neg - Trace); Urine Bilirubin Negative (Negative); Urine Character Clear (Clear); Urine Color Yellow; Urine Glucose Negative (Negative); Urine Ketone Negative (Negative); Urine Leukocyte 2+ (Negative); Urine Nitrite Negative (Negative); Urine Occult Blood Trace (Negative); Urine Urobilinogen Negative (Neg - 1+)
[2024-01-24 17:34] LABS: Urine Red Blood Cell 0-2 /HPF (0-2); Urine Squamous Cell 0-2 /LPF (Few); Urine White Cell 26-30 /HPF (0-5)
[2024-01-24 17:35] LABS: Urine Bacteria Moderate (Negative)
[2024-01-24 17:39] LABS: COVID-19 Antigen Negative (Negative)
[2024-01-24] MEDS: SYMBICORT 160/4.5 MCG INHALER 2 PUFF INH (19:03)
[2024-01-24] MEDS: LOPRESSOR 25 MG PO (21:10)
[2024-01-24] MEDS: LIPITOR 40 MG PO (21:10)
[2024-01-24] MEDS: PROTONIX 40 MG PO (21:10)
[2024-01-24] MEDS: NEURONTIN 300 MG PO (21:10)
[2024-01-24] MEDS: MUCINEX 600 MG PO (21:10)
[2024-01-24] MEDS: ELIQUIS 2.5 MG PO (21:10)
[2024-01-24] MEDS: TYLENOL 1000 MG PO (21:41)
[2024-01-24 22:41] LABS: Troponin I 0.028 ng/ml
[2024-01-25] VITALS (8 sets, daily range): BP systolic 103–151; BP diastolic 53–76; PULSE 92–93; O2SAT 93; BMI 24.8
[2024-01-25 04:07] LABS: Hematocrit 28.2 % (37.0-47.0); Hemoglobin 8.9 g/dL (12.0-16.0); Mean Corp Hgb Conc. 31.6 g/dL (33.0-37.0); Mean Corpuscular Hgb 30.2 pg (27.0-31.0); Mean Corpuscular Volume 95.6 fL (81.0-99.0); Mean Platelet Volume 9.4 fL (7.4-10.4); Platelet Count 239 10^3/uL (130-400); Red Blood Cell Count 2.95 10^6/uL (4.20-5.40); White Blood Cell Count 3.6 10^3/uL (4.8-10.8)
[2024-01-25 04:28] LABS: Blood Urea Nitrogen 35 mg/dl (7-17); Calcium 8.6 mg/dl (8.4-10.2); Carbon Dioxide 37 mmol/L (22-30); Chloride 99 mmol/L (98-107); Estimated Creatinine Clearance 37 ml/min; Glucose 133 mg/dl (70-99); HDL Cholesterol 36 mg/dl; LDL Cholesterol, Calculated 43 mg/dl; Magnesium 2.1 mg/dl (1.6-2.3); Potassium 4.7 mmol/L (3.5-5.1); Sodium 140 mmol/L (135-145); Total Cholesterol 91 mg/dl (50-199); Triglyceride 63 mg/dl (10-149); Very Low Density Lipoprotein 12 mg/dl (0-30); eGFR 55.21
[2024-01-25] MEDS: DECADRON 4 MG IV ×3 (06:17→20:10)
[2024-01-25] MEDS: SYNTHROID 88 MCG PO (06:17)
[2024-01-25] MEDS: ULTRAM 25 MG PO ×2 (06:24→22:46)
--- NOTE | 2024-01-25 07:52 | W.PN.CD ---
Today's Communication / Plan
-
Increase furosemide to 80 mg IV today. Likely convert to furosemide 80 mg PO daily tomorrow.
Anemia evaluation.
UTI management per primary.
Case management to feliciano dapagliflozin 10 mg daily (not being given at this moment in the context of UTI).
Impression / Plan
-
Impression/Plan: 83-year-old female with past medical history of paroxysmal A-fib on apixaban, COPD on 4 L nasal cannula, lung cancer, pleural effusions and anemia admitted with acute on chronic HFpEF after decreased UOP in the context of a UTI.
#HFpEF
-Acute on chronic.
-TTE today.
-Furosemide 80 mg IV today.
-Convert to furosemide 80 mg PO daily tomorrow (home dose).
-Keep K > 4, Mg > 2, Ca > 8 and PO4 > 2.5
-Convert metoprolol tartrate to metoprolol succinate.
-Patient would benefit from SGLT2i, but UTI makes this less than appealing. Case management consult for cost.
-Monitor HCO3 as we diurese. She may need acetazolamide to prevent excessive alkylosis.
#Moderate pleural effusion
-Chronic.
-Review of prior CXR shows that effusion is essentially stable.
-Consider thoracentesis, but only if she does not respond well to diuretics.
#Atrial Fibrillation
-Paroxysmal.
-Currently in NSR.
-Rate control with metoprolol tartrate. Convert to succinate.
-CHADS2-Vasc = 5 (CHF, HTN, Age x2, Female).
-Therapeutic anticoagulation with apixaban 5 mg BID.
#HTN
-Chronic, stable.
-Monitor response to metoprolol change.
-If BP becomes an issue, would favor use of sacubitril-valsartan vs. spironolactone.
#COPD/Chronic hypoxic respiratory failure
-Chronic.
-Requires 4LNC at home.
-COVID/Influenza negative.
-VBG suggests acute on chronic respiratory acidosis with compensatory metabolic alkylosis.
-Continue inhaled bronchodilators.
-Pulmonary to evaluate.
-Possible steroids?
#UTI
-Acute.
-+UA, culture pending.
-Management per primary.
-The patient has not yet received any antibiotics while admitted.
#Anemia
-Acute on chronic.
-Hbg 10.6 --> 8.9.
-No obvious source of blood loss. Possible dilution, but I would expect that to improve with diuresis. Lab error is also possible.
-Check hemoccult in the setting of therapeutic anticoagulation.
-Add on Fe studies, B12/Folate/Thiamine, reticulocyte count, fractionated bilirubin.
#Weakness and falls
-Relatively acute.
-PT/OT.
Subjective/Interval History:
Weight is down 0.9 kg.
Notable fall in Hbg (10.6 --> 8.9, previously >12 in December).
DATA:
TTE, 01/10/2023:
CONCLUSIONS
Normal biventricular size and systolic function without regional wall motion
abnormality. Estimated LVEF 60-65%.
Mild concentric left ventricular hypertrophy.
Trace aortic regurgitation.
Moderate tricuspid regurgitation. Moderately elevated PASP. Estimated pulmonary
artery pressure of 48 mmHg, assuming a right atrial pressure of 3 mmHg.
Compared to 01/29/21: no significant change.
Physical Exam
Vital Signs/Labs
Vital Signs
Temp Pulse Resp BP Pulse Ox
36.5 C 75 18 118/64 97
01/25/24 03:32 01/25/24 03:32 01/25/24 03:32 01/25/24 03:32 01/25/24 03:32
01/23/24 01/24/24 01/25/24
11:59 11:59 11:59
Actual Weight 67.727 kg
01/25/24 03:49
01/25/24 03:49
Magnesium 2.1 mg/dl (1.6-2.3) 01/25/24 03:49
Triglycerides 63 mg/dl (10-149) 01/25/24 03:49
LDL Cholesterol, Calc 43 mg/dl 01/25/24 03:49
VLDL Cholesterol, Calc 12 mg/dl (0-30) 01/25/24 03:49
HDL Cholesterol 36 mg/dl 01/25/24 03:49
01/24/24
13:13
Xgi-V-Ybjychkyrsm Pept 8220
LAB Results
01/24/24 01/24/24 01/25/24
13:13 22:03 03:49
Troponin I 0.045 H* 0.028 0.020 D
Physical Exam
Constitutional: No acute distress and Comfortable
EENT: Anicteric and Moist mucous membranes
Cardiovascular: Rhythm & rate is regular, Pedal edema is absent, JVD pressure is normal, S1S2 is normal and Murmur/rub/gallop absent
Respiratory: Respiratory effort normal, Crackles Present and Other (Decreased/absent in the RLL.)
GI: Soft, Distention absent, Flat, Non tender and Normal bowel sounds
Neuro/Psych: AO x 3 (She is oriented x3 but remains a somewhat unreliable historian.)
Data Reviewed
-
Date of Service: January 25, 2024
Medical Decision Making: Reviewed Test Results, Tests Ordered, Independent Historian Assessment and Test Interpretation
EKG: Tracing Personally Visualized and interpreted and Report Reviewed by me
Echo: Report Reviewed by me
X-Ray/CT/US/MRI/NUC/PET: Image Personally Visualized and interpreted, Report Reviewed by me and Discussed with Patient
Labs: Labs Reviewed by me and Labs Ordered by me
Old Records: Reviewed
[2024-01-25] MEDS: DUONEB 3 ML INH ×4 (07:56→19:32)
[2024-01-25] MEDS: SPIRIVA RESPIMAT 2.5 MCG INH (07:56)
[2024-01-25] MEDS: SYMBICORT 160/4.5 MCG INHALER 2 PUFF INH ×2 (07:57→19:32)
[2024-01-25] MEDS: LEVAQUIN 250 MG PO (08:25)
[2024-01-25] MEDS: NEURONTIN 300 MG PO ×2 (08:25→20:10)
[2024-01-25] MEDS: MUCINEX 600 MG PO ×2 (08:26→20:10)
[2024-01-25] MEDS: PROTONIX 40 MG PO ×2 (08:26→20:10)
[2024-01-25] MEDS: ELIQUIS 2.5 MG PO ×2 (08:26→20:10)
[2024-01-25] MEDS: LEXAPRO 5 MG PO (08:26)
[2024-01-25] MEDS: LASIX 80 MG IV (08:27)
[2024-01-25] MEDS: TYLENOL 1000 MG PO ×3 (08:27→21:13)
[2024-01-25 08:46] LABS: Iron 54 ug/dl (37-170); Total Bilirubin 0.3 mg/dl (0.2-1.3)
[2024-01-25 08:55] LABS: Percent Saturation 27 % (20-50); Total Iron Binding Capacity 196 ug/dl (265-497)
[2024-01-25 09:16] LABS: Reticulocyte Count 1.8 % (0.4-2.8)
[2024-01-25] MEDS: LOPRESSOR PO (09:37)
[2024-01-25 09:53] LABS: Folate > 20.0 ng/ml (2.76-20); Vitamin B12 886 pg/ml (239-931)
[2024-01-25] MEDS: TOPROL XL 50 MG PO (09:57)
--- NOTE | 2024-01-25 10:13 | CON.PUL ---
Consultation
Consultation Request
Date/Time Consultation Requested: 01/25/2024-8 AM
Date/Time Consultation Performed: 01/25/2024-8:30 AM
Requesting Provider: Hospitalist
Performing Provider: Dr. Cruz
Reason for Consultation: Shortness of breath
Medical History
-
Chief Complaint: Shortness of breath
History of Present Illness:
83-year-old female patient with underlying COPD followed locally by Dr. Mcduffie and now at [facility], lung cancer status post radiation therapy and 3 recent right-sided thoracenteses who also has atrial fibrillation on Eliquis and PAD presents with
history of 1 night at [place] last week after she fell on her right side treated for UTI and now presents with shortness of breath-pulmonary consulted for shortness of breath/COPD/history of lung cancer 01/25/2024.. The patient states that her
shortness of breath is mildly improved. She denies any chest pain, chest tightness, productive cough, pleurisy, abdominal pain, and has some mild increased wheezing but no increased lower extremity edema or weakness.
Past Medical History
Past Medical History: None (COPD. Chronic oxygen 4 L. Atrial fibrillation/Eliquis. PAD/femorofemoral bypass 2020. Hypertension. Lung cancer status post XRT. Recurrent pleural effusion status post multiple thoracenteses. Heart failure
preserved EF.)
Social History
Tobacco: Former Smoker
Alcohol: None
Drug: None
Living: With Family
Occupational Exposures: No known asbestos exposure
Family History
Family History: Reviewed & Not Pertinent
Allergies / Home Medications
Allergies
Allergy/AdvReac Type Severity Reaction Status Date / Time
No Known Allergies Allergy Verified 04/27/23 10:42
Home Medications
�Medication �Instructions �Recorded �Confirmed �Last Taken �Type
albuterol sulfate 90 mcg/actuation 2 puff inhalation R Q4HPRN PRN 09/05/19 01/24/24 09/19/19 History
aerosol inhaler shortness of breath
polyethylene glycol 3350 17 gram 17 grams PO DAILYPRN PRN 11/15/20 01/24/24 Unknown History
oral powder packet constipation
acetaminophen 500 mg tablet 500 mg PO Q6HPRN PRN mild 11/23/20 01/24/24 12/29/20 History
(Tylenol Extra Strength) pain/fever
atorvastatin 40 mg tablet 40 mg PO QPM High cholesterol 12/03/20 01/24/24 12/28/20 History
ferrous sulfate 325 mg (65 mg 325 mg PO NOON Supplement 12/29/20 01/24/24 05/06/21 12:00 History
iron) tablet (FeroSul)
gabapentin 300 mg capsule 300 mg PO BID Neurological 01/18/21 01/24/24 05/06/21 22:00 History
Condition
ipratropium 0.5 mg-albuterol 3 mg 3 ml inhalation R Q4HPRN PRN sob 01/18/21 01/24/24 Unknown History
(2.5 mg base)/3 mL nebulization
soln
denosumab 60 mg/mL subcutaneous 60 mg SC [id number] Osteoporosis 05/06/21 01/24/24 Unknown History
syringe (Prolia)
apixaban 2.5 mg tablet (Eliquis) 2.5 mg PO BID Blood Clot 01/24/24 01/24/24 Unknown History
Prevention/Tx
escitalopram oxalate 5 mg tablet 5 mg PO DAILY depression/anxiety 01/24/24 01/24/24 Unknown History
fexofenadine 180 mg tablet 180 mg PO DAILY Allergies 01/24/24 01/24/24 Unknown History
fluticasone fur. 200 mcg-umeclid 1 inh inhalation R DAILY 01/24/24 01/24/24 Unknown History
62.5 mcg-vilant 25 mcg Lung/Breathing Issues
inhalat.powder (Trelegy Ellipta)
furosemide 80 mg tablet 80 mg PO DAILY Fluid 01/24/24 01/24/24 Unknown History
Retention/Swelling
levofloxacin 250 mg tablet 250 mg PO DAILY Infection 01/24/24 01/24/24 Unknown History
levothyroxine 88 mcg tablet 88 mcg PO DAILY Thyroid 01/24/24 01/24/24 Unknown History
methocarbamol 500 mg tablet 500 mg PO TID pain/muscle spasm 01/24/24 01/24/24 Unknown History
metoprolol tartrate 25 mg tablet 25 mg PO BID Blood Pressure 01/24/24 01/24/24 Unknown History
pantoprazole 40 mg tablet,delayed 40 mg PO BID Gastrointestinal Issue 01/24/24 01/24/24 Unknown History
release
potassium chloride 20 mEq 40 meq PO DAILY Electrolyte 01/24/24 01/24/24 Unknown History
tablet,extended Repletion
release(part/cryst) (Jayy Wooten)
Review of Systems
-
Unable to Obtain full review of systems at this time due to: Other (Per HPI)
Vitals / Labs / Diagnostic Testing
Vital Signs
Temp Pulse Resp BP Pulse Ox
99.6 F 89 20 151/76 95
01/25/24 08:00 01/25/24 08:32 01/25/24 08:32 01/25/24 08:00 01/25/24 08:32
Lab Data
01/25/24 03:49
01/25/24 03:49
Microbiology
01/24/24 17:11 Nasal Swab Influenza Types A & B (RAMON) - Final
Negative for Influenza A & B, NAAT
Negative results must be combined with clinical observations
and patient history.
Nucleic Acid Amplification test (NAAT)performed on the
[employer] platform.
Diagnostic Testing:
Physical Exam
-
Exam:
Well-nourished and well-developed in no apparent distress
HEENT-atraumatic, normocephalic
Neck-supple, no JVD, no bruit
Heart-regular rate and rhythm-no murmurs, rubs or gallops
Chest with diminished breath sounds, prolonged expiratory time, rare crackles and few rhonchi
Back without tenderness
Abdomen-soft, nontender, nondistended, no hepatosplenomegaly
Extremities-no cyanosis, clubbing trace lower extremity edema
Integument-intact, no rashes, lesions or ecchymosis
Neurology-alert and oriented, nonfocal motor and sensory exam
Assessment
-
83-year-old female patient with underlying COPD followed locally by Dr. Mcduffie and now at [facility], lung cancer status post radiation therapy and 3 recent right-sided thoracenteses who also has atrial fibrillation on Eliquis and PAD presents with
history of 1 night at [place] last week after she fell on her right side treated for UTI and now presents with shortness of breath-pulmonary consulted for shortness of breath/COPD/history of lung cancer 01/25/2024.
Heart failure preserved EF
COPD with acute exacerbation
Hypoxemic and hypercapnic respiratory failure-VBG 01/24/2024-80/35/7 0.25
Atrial fibrillation on chronic Eliquis
Leukopenia-WBC 3.6
Pcrwrg-hdlhirpyav-woyneekboj 8.9
Hyperglycemia
Conditions present prior to admission:
COPD-chronic oxygen 4 L.
Atrial fibrillation/Eliquis.
PAD/femorofemoral bypass 2020.
Hypertension.
Lung cancer status post XRT-[facility]-2019
Recurrent pleural effusion status post multiple thoracenteses-[facility]-history of tunneled catheter 08/2022
Heart failure preserved EF.
Plan
Respiratory decompensation likely related to mild CHF and persistent right pleural effusion with underlying COPD
Supplemental oxygen as needed
Nebulizers
Symbicort and Spiriva continue
Mucolytic's
Decadron 4 mg IV every 8 hours
Aspiration precautions
Radiographs reviewed-moderate right pleural effusion-history of multiple thoracentesis and Pleurx catheter reportedly in the past
Thoracentesis if enough pleural fluid for evacuation
Dr. Cruz contacted interventional radiology-would send off for routine as well as cytology studies
Diuresis as tolerated
Monitor renal function, electrolytes, intake/output, lower extremity edema and weight
Replace electrolytes as needed
Echocardiogram 01/25/2024 summarized below
Cardiology following-correspondence reviewed
Atrial fibrillation rate control
Chronic Eliquis 2.5 mg twice daily
Monitor hemoglobin
Transfuse as needed
Monitor blood sugar
Insulin supplementation as needed
DVT prophylaxis-on Eliquis
Nutrition
Early mobilization
Outpatient follow-up at [facility]-had followed locally with Dr. Estrada-last seen 08/11/2021 and canceled 03/20/2022 appointment
Diagnostic data:
Chest x-ray 04/27/2023-stable mild CHF, mild T6 compression fracture
Chest x-ray 11/13/2023-moderate right pleural effusion
Chest x-ray 01/24/2024-moderate CHF and moderate right pleural effusion
CT chest 12/05/2021-no pulm embolism, large right pleural effusion, COPD changes, confluent soft tissue attenuation right hilum
CT chest 05/01/22-2.1 cm solid pulmonary nodule left lower lobe suspicious for cancer and large since 11/03/2020, severe centrilobular emphysema, osteoporosis
PET scan 05/31/2022-calcified pleural thickening, moderate size loculated right pleural effusion, 1.6 cm part solid pulmonary nodule suspicious for low-grade cancer
CT chest 08/22/2022-tunneled right pleural catheter with decreased right pleural fluid
Echocardiogram 01/25/2024-EF 60-65%, moderate tricuspid regurgitation, PA systolic 53
Pulmonary function studies-08/10/20: Mixed obstructive and restrictive lung disease. Forced vital capacity 2.02 L or 71% of predicted FEV1 1.22 L or 58% of predicted. 6% improvement postbronchodilator. FEV1/FVC ratio 60%. Mild to moderate restriction.
Total lung capacity 65% of predicted diffusing capacity severely reduced at 24% of predicted.
Data Reviewed
-
PFT: Report reviewed by me
EKG: Report reviewed by me
Radiology: Report reviewed by me
CT Scan: Image personally visualized and interpreted and Report reviewed by me
Ultrasound: Report reviewed by me
Medical Tests (Nuc Med, Echo etc): Report reviewed by me
Labs: Labs reviewed by me
Old Records: Reviewed
Total Time Spent with Patient (in minutes): 65
--- NOTE | 2024-01-25 11:55 | W.PN.HOSP.TC ---
Addendum entered and electronically signed by Mary Stiles MD 01/25/24 12:29:
*decrease steroids to q 12
Original Note:
Today's Communication/Plan
-
see plan
Assessment / Plan
Assessment / Plan
Ms. Shannan Lopes is a 83 yo woman with hx HFpEF, lung CA s/p radiation, COPD, chronic hypoxic respiratory failure on 4L, atrial fibrillation on Eliquis presents to the ER with shortness of breath found to be in heart failure, suspect COPD
exacerbation contributing as well.
Triage VS: T 98.2, P 82, RR 18, BP 122/66, SpO2 95%
LABS: WBC 9.1, Hg 10.6, PLT 279, Na 143, K+ 5.1, Cl 97, CO2 37, BUN 33, Cr 1.1
AB.26/80/35
CXR
IMPRESSION:
Moderate pulmonary edema with moderate right pleural effusion
Parenchymal airspace disease at the left lung base most consistent with scarring
Acute on chronic hypoxic and hypercarbic respiratory Failure
Right Pleural effusion
Acute COPD Exacerbation
Heart Failure preserved EF, Acute Exacerbation
-flu and covid negative
-although pCO2 reads 80, patient's bicarb is 37 - chronic retainer - she is awake and conversant without significant distress; she is now on her home O2 4L; remains symptomatic on exertion
-TTE with EF 60-65%
-continue IV lasix
-IR consult for thoracentesis ordered by Pulmonary
-daily weights, strict I/O
-Decadron and Duonebs now - continue Decadron 4mg q8 hours; standing duonebs and PRN
-acapella
-ELECTRONICS ASSEM[employer]ER [employer] TESTER Trelegy
-Cardiology consult appreciated
-Pulmonary consult appreciated
Anemia
-drop in Hg overnight, TIBC low
-repeat Hg now
Non-Ischemic Troponin Elevation
-2/2 stress from heart failure
Atrial Fibrillation
-continue ELECTRON[employer] Metoprolol, Eliquis
GERD
-E[employer]RON[employer] Protonix
Recent UTI
-completed course of Levaquin
Anxiety
-ELECTRON[employer] Lexapro
HLD
-ELECTRON[employer] Atorvastatin
DVT PPx Eliquis
DNR, intubation OK - discussed at bedside on admission
51 minutes spent on patient care
Anticipated Discharge: 24 - 48 hours
Subjective/Interval History
-
Date of Service: January 25, 2024
continues to feel short of breath with exertion
Objective Data
-
Labs:
Laboratory Results
01/25/24
03:49
WBC 3.6 L
Hgb 8.9 L
Hct 28.2 L
Plt Count 239
Sodium 140
Potassium 4.7
Chloride 99
Carbon Dioxide 37 H
BUN 35 H
Creatinine 1.0
Glucose 133 H
Calcium 8.6
Total Bilirubin 0.3
Vital Signs:
Vital Signs
Temp Pulse Resp BP Pulse Ox
99.6 F 89 20 151/76 95
01/25/24 08:00 01/25/24 08:32 01/25/24 08:32 01/25/24 08:00 01/25/24 08:32
I&O
01/24/24 01/25/24 01/26/24
06:59 06:59 06:59
Intake Total 480 / 480
Output Total 400 / 400
Balance 80 / 80
Review of Systems
-
History Source: Patient
All other systems: Reviewed and negative
Physical Exam
-
General: Other (mildly tachpneic )
HEENT: PERRLA
Respiratory: Rales and Decreased Breath Sounds
Cardiac: Regular Rhythm and S1/S2
GI: Soft and Nontender
Musculoskeletal: No Edema and Other (diffuse bruising from prior fall )
Skin: Warm and Dry; Negative Rash
Neuro: AO x 3
Psych: Calm
Data Reviewed
-
Diagnostic Radiology: Report Reviewed by me
Labs: Labs Reviewed by me
[2024-01-25 12:36] LABS: Hemoglobin 9.9 g/dL (12.0-16.0)
[2024-01-25] MEDS: LIDOCAINE 4% PATCH 1 PATCH TOPICAL (14:25)
--- NOTE | 2024-01-25 15:02 | CM ---
manager qa reviewed patient's chart and met with patient and patient states she lives alone in a 2 story home, patient has a chair glide to 2nd floor, patient is independent with adl's and occasionally uses a walker in home, patient is on oxygen
at home at 4 liters, patient was seen by physical therapy and recommendation is for skilled placement, patient is asking for referrals to [facility], acute rehab and then [facility] as back up plan. referrals sent.
Plan. [facility] acute [facility] v's [facility].
[2024-01-25] MEDS: LIPITOR 40 MG PO (19:08)
[2024-01-26] MEDS: MELATONIN 5 MG PO ×2 (02:58→21:20)
[2024-01-26 03:16] VITALS: BP 128/72
[2024-01-26 06:00] VITALS: BMI 25.3
[2024-01-26] MEDS: SYNTHROID 88 MCG PO (06:10)
[2024-01-26 06:53] LABS: Hematocrit 29.9 % (37.0-47.0); Hemoglobin 9.4 g/dL (12.0-16.0); Mean Corp Hgb Conc. 31.4 g/dL (33.0-37.0); Mean Corpuscular Hgb 30.5 pg (27.0-31.0); Mean Corpuscular Volume 97.1 fL (81.0-99.0); Mean Platelet Volume 9.3 fL (7.4-10.4); Platelet Count 280 10^3/uL (130-400); Red Blood Cell Count 3.08 10^6/uL (4.20-5.40); Red Cell Dist. Width 14.2 % (11.5-14.5); White Blood Cell Count 4.5 10^3/uL (4.8-10.8)
[2024-01-26 07:15] LABS: Blood Urea Nitrogen 43 mg/dl (7-17); Calcium 8.9 mg/dl (8.4-10.2); Carbon Dioxide 38 mmol/L (22-30); Chloride 97 mmol/L (98-107); Estimated Creatinine Clearance 34 ml/min; Glucose 141 mg/dl (70-99); Potassium 4.6 mmol/L (3.5-5.1); Sodium 140 mmol/L (135-145); eGFR 49.24
[2024-01-26] MEDS: DUONEB 3 ML INH ×4 (07:26→20:18)
[2024-01-26] MEDS: SPIRIVA RESPIMAT 2.5 MCG 2 PUFF INH (07:27)
[2024-01-26] MEDS: SYMBICORT 160/4.5 MCG INHALER 2 PUFF INH ×2 (07:27→20:18)
[2024-01-26 07:30] VITALS: BP 121/80
[2024-01-26] MEDS: PROTONIX 40 MG PO ×2 (08:19→20:21)
[2024-01-26] MEDS: LEXAPRO 5 MG PO (08:19)
[2024-01-26] MEDS: LASIX 80 MG IV ×2 (08:20→17:20)
[2024-01-26] MEDS: TYLENOL 1000 MG PO ×3 (08:20→21:11)
[2024-01-26] MEDS: NEURONTIN 300 MG PO ×2 (08:22→20:21)
[2024-01-26] MEDS: TOPROL XL 50 MG PO (08:23)
[2024-01-26] MEDS: MUCINEX 600 MG PO (08:23)
[2024-01-26] MEDS: ELIQUIS 2.5 MG PO (08:23)
[2024-01-26] MEDS: DECADRON 4 MG IV ×2 (08:24→20:21)
[2024-01-26] MEDS: LIDOCAINE 4% PATCH 1 PATCH TOPICAL (08:24)
--- NOTE | 2024-01-26 09:20 | W.PN.PUL3 ---
Today's Communication / Plan
-
Diuresis
Systemic steroids -wean as she clinically improves
Eliquis
K>4, Mg>2
Maintain net negative fluid balance as tolerated
Up OOB as tolerated
Continue with Acapella
Pulmonary toilet - raise mucinex to 1200mg q12hr
Continue with supplemental O2, keeping SpO2 88-95% and check ambulatory pulse oximetry prior to discharge
Pulmonary service will continue to follow along
Assessment
-
83-year-old female patient with underlying COPD followed locally by Dr. Mcduffie and now at [facility], lung cancer status post radiation therapy and 3 recent right-sided thoracenteses who also has atrial fibrillation on Eliquis and PAD presents with
history of 1 night at [place] last week after she fell on her right side treated for UTI and now presents with shortness of breath-pulmonary consulted for shortness of breath/COPD/history of lung cancer 01/25/2024.
Impression:
Heart failure preserved EF
COPD with acute exacerbation
Hypoxemic and hypercapnic respiratory failure-VBG 01/24/2024-7.25/80/35/61%
Atrial fibrillation on chronic Eliquis
Leukopenia
Anemia
Hyperglycemia - resolved
Conditions present prior to admission:
COPD-chronic oxygen 4 L.
Atrial fibrillation/Eliquis.
PAD/femorofemoral bypass 2020.
Hypertension.
Lung cancer status post XRT-[facility]-2019
Recurrent pleural effusion status post multiple thoracenteses-[facility]-history of tunneled catheter 08/2022
Heart failure preserved EF.
Plan
Respiratory decompensation likely related to CHF and persistent right pleural effusion with underlying COPD
Supplemental oxygen as needed to keep SpO2: 88-95%
DuoNebs with prn doses in between for breakthrough symptoms
Symbicort and Spiriva continue
Mucolytics with mucinex
Currently on decadron 4 mg IV every 12 hours
Aspiration precautions
Radiographs reviewed-moderate right pleural effusion-history of multiple thoracentesis and Pleurx catheter reportedly in the past
Thoracentesis if enough pleural fluid for evacuation --> chest ultrasound performed on 01/25/2024 showing insufficient fluid for thoracentesis
Diuresis as tolerated --> currently on lasix 80mg IV BID
Monitor renal function, electrolytes, intake/output, lower extremity edema and weight
Replace electrolytes as needed with K>4, Mg>2
Echocardiogram 01/25/2024 summarized below
Cardiology following-correspondence reviewed
Atrial fibrillation rate control
Chronic Eliquis 5 mg twice daily
Monitor hemoglobin
Transfuse as needed to keep Hb>7
Monitor blood sugar with goal BG >100 and <180mg/dL
Insulin supplementation as needed
DVT prophylaxis-on Eliquis
Nutrition
Early mobilization
Outpatient follow-up at [facility]-had followed locally with Dr. Estrada-last seen 08/11/2021 and canceled 03/20/2022 appointment
Pulmonary service will continue to follow along
Diagnostic data:
Chest x-ray 04/27/2023-stable mild CHF, mild T6 compression fracture
Chest x-ray 11/13/2023-moderate right pleural effusion
Chest x-ray 01/24/2024-moderate CHF and moderate right pleural effusion
CT chest 12/05/2021-no pulm embolism, large right pleural effusion, COPD changes, confluent soft tissue attenuation right hilum
CT chest 05/01/22-2.1 cm solid pulmonary nodule left lower lobe suspicious for cancer and large since 11/03/2020, severe centrilobular emphysema, osteoporosis
PET scan 05/31/2022-calcified pleural thickening, moderate size loculated right pleural effusion, 1.6 cm part solid pulmonary nodule suspicious for low-grade cancer
CT chest 08/22/2022-tunneled right pleural catheter with decreased right pleural fluid
Echocardiogram 01/25/2024-EF 60-65%, moderate tricuspid regurgitation, PA systolic 53
Pulmonary function studies-08/10/20: Mixed obstructive and restrictive lung disease. Forced vital capacity 2.02 L or 71% of predicted FEV1 1.22 L or 58% of predicted. 6% improvement postbronchodilator. FEV1/FVC ratio 60%. Mild to moderate restriction.
Total lung capacity 65% of predicted diffusing capacity severely reduced at 24% of predicted.
Total time spent today was 36 minutes for this encounter. Time includes reviewing laboratory test/imaging results, reviewing pertinent medical records, obtaining and reviewing medical history, performing an appropriate exam, ordering medications,
tests and procedures. Time also includes documentation of this encounter, coordinating patient care and communicating with other healthcare professionals. Total time does not include separately billed tests performed on this date of service.
Subjective Data
-
Date of Service:
Date of Service: January 26, 2024
Chief Complaint: Pulmonary Follow Up
Subjective:
Patient seen and evaluated today at bedside. Still having a nonproductive cough although it sounds wet with difficulty expectorating. Currently on 4 L/min nasal cannula. Still feeling short of breath with exertion but otherwise is breathing
comfortably at rest. Denies chest pain, WALLACE, nausea, vomiting, fevers or chills.
Review of Systems
General: Other (Negative unless mentioned above)
Objective Data
Data Reviewed
Vital Signs / I&O / Oxygen:
Vital Signs
Temp Pulse Resp BP Pulse Ox
97.8 F 86 18 127/63 97
01/26/24 15:00 01/26/24 15:23 01/26/24 15:23 01/26/24 15:00 01/26/24 15:00
Intake and Output
01/25/24 01/26/24 01/27/24
06:59 06:59 06:59
Intake Total 480 / 480 600 / 600
Output Total 400 / 400
Balance 80 / 80 600 / 600
SaO2 97
Nasal Cannula flow liters per 4
minute
Physical Exam
General: Respiratory Distress (negative), Comfortable, Chills (negative) and Sweats (negative)
HEENT: Normocephalic and Anicteric
Cardiovascular: S1-S2 and Peripheral Edema (negative)
Respiratory: Wheeze (negative), Crackles (negative), Rhonchi (Bilaterally) and Non-Labored Respirations
GI: Soft, Non Distended, Non Tender and Normal Bowel Sounds
Neurology: Awake, Alert and Tremors (negative)
Skin: Warm, Dry, Cyanosis (negative) and Jaundice (negative)
Labs/Micro/Reports
Lab Data
01/26/24 06:01
01/26/24 06:01
Microbiology
01/24/24 17:11 Urine Urine Culture - Preliminary
Staphylococcus species
01/24/24 17:11 Nasal Swab Influenza Types A & B (RAMON) - Final
Negative for Influenza A & B, NAAT
Negative results must be combined with clinical observations
and patient history.
Nucleic Acid Amplification test (NAAT)performed on the
[email or web address] platform.
[2024-01-26 11:45] VITALS: BP 129/69
--- NOTE | 2024-01-26 12:23 | W.PN.CD ---
Addendum entered and electronically signed by Rajan Vega MD 01/26/24 12:58:
I saw and examined the patient.
The SEWING TRIMMER's note was reviewed and I agree with the note.
Comment: Continues to be volume overloaded.
- BID IV lasix
Original Note:
Today's Communication / Plan
-
-adjust Eliquis to proper dosing (5 mg PO BID with weight >60 kg and creat <1.5)
-continue IV diuresis- change to BID dosing
Impression / Plan
-
Impression/Plan: 83-year-old female with past medical history of paroxysmal A-fib on apixaban, COPD on 4 L nasal cannula, lung cancer, pleural effusions and anemia admitted with acute on chronic HFpEF after decreased UOP in the context of a UTI.
#HFpEF
-Acute on chronic.
-Echo 01/25/24: LV ejection fraction is 60-65% by Saavedra's method of discs. Mild concentric left ventricular hypertrophy. Moderate tricuspid regurgitation. Estimated pulmonary artery pressure of 53 mmHg. Assuming a right atrial pressure of 3 mmHg.
-weight has not changed much
-pleural effusion was not big enough to tap
-I think she needs more IV diuresis- will adjust to BID dosing
-CHF education- in hindsight, she has been having more sodium than she should
#Atrial Fibrillation
-Paroxysmal.
-Currently in NSR.
-continue metoprolol
-CHADS2-Vasc = 5 (CHF, HTN, Age x2, Female).
-Therapeutic anticoagulation with apixaban 5 mg BID- she has been on lower dose here - will adjust (weight greater than 60 kg and creat <1.5). Monitor to ensure this continues to be correct dosing.
-brief runs pSVT overnight- felt palps after steroids. Continue BB and monitoring.
#HTN
-Chronic, stable.
#COPD/Chronic hypoxic respiratory failure
-Chronic.
-Requires 4LNC at home.
-COVID/Influenza negative.
-VBG suggests acute on chronic respiratory acidosis with compensatory metabolic alkalosis.
-Continue inhaled bronchodilators. Getting steroids as well.
#Recent UTI
-s/p OP abx
#Anemia
-per primary
#Weakness and falls
-Relatively acute.
-PT/OT.
Subjective/Interval History:
Still with HANDLEY
Physical Exam
Vital Signs/Labs
Vital Signs
Temp Pulse Resp BP Pulse Ox
97.9 F 84 16 121/80 98
01/26/24 07:30 01/26/24 11:28 01/26/24 11:28 01/26/24 07:30 01/26/24 07:32
01/25/24 01/26/24 01/27/24
06:59 06:59 06:59
Actual Weight 67.727 kg 68.946 kg
01/26/24 06:01
01/26/24 06:01
Magnesium 2.1 mg/dl (1.6-2.3) 01/25/24 03:49
Triglycerides 63 mg/dl (10-149) 01/25/24 03:49
LDL Cholesterol, Calc 43 mg/dl 01/25/24 03:49
VLDL Cholesterol, Calc 12 mg/dl (0-30) 01/25/24 03:49
HDL Cholesterol 36 mg/dl 01/25/24 03:49
01/24/24
13:13
Esb-V-Mqqhlqqcclz Pept 8220
LAB Results
01/24/24 01/24/24 01/25/24
13:13 22:03 03:49
Troponin I 0.045 H* 0.028 0.020 D
Physical Exam
Constitutional: No acute distress
EENT: Anicteric
Cardiovascular: Rhythm & rate is regular and Pedal edema present (mild BLE)
Respiratory: Wheeze Present, Crackles Present (left base) and Other (on O2 by NC)
Neuro/Psych: AO x 3
Data Reviewed
-
Date of Service: January 26, 2024
EKG: Other (SR, brief runs PSVT)
Labs: Labs Reviewed by me
--- NOTE | 2024-01-26 13:01 | W.PN.HOSP.TC ---
Today's Communication/Plan
-
Diuresis
Decadron, nebs
appreciate Consultants
Assessment / Plan
Assessment / Plan
Ms. Shannan Lopes is a 83 yo woman with hx HFpEF, lung CA s/p radiation, COPD, chronic hypoxic respiratory failure on 4L, atrial fibrillation on Eliquis presents to the ER with shortness of breath found to be in heart failure, suspect COPD
exacerbation contributing as well.
Triage VS: T 98.2, P 82, RR 18, BP 122/66, SpO2 95%
LABS: WBC 9.1, Hg 10.6, PLT 279, Na 143, K+ 5.1, Cl 97, CO2 37, BUN 33, Cr 1.1
AB.26/80/35
CXR
IMPRESSION:
Moderate pulmonary edema with moderate right pleural effusion
Parenchymal airspace disease at the left lung base most consistent with scarring
Acute on chronic hypoxic and hypercarbic respiratory Failure
Right Pleural effusion
Acute COPD Exacerbation
Heart Failure preserved EF, Acute Exacerbation
-flu and covid negative
-although pCO2 reads 80, patient's bicarb is 37 - chronic retainer - she is awake and conversant without significant distress; she is now on her home O2 4L; remains symptomatic on exertion
-TTE with EF 60-65%
-continue IV lasix --> increased to BID
-not enough fluid for thoracentesis
-daily weights, strict I/O
-Decadron and Duonebs now - continue Decadron 4mg q8 hours; standing duonebs and PRN
-acapella
-HOUSE SERVANT Trelegy
-Cardiology consult appreciated
-Pulmonary consult appreciated
Anemia
-Hg stable
Non-Ischemic Troponin Elevation
-2/2 stress from heart failure
Atrial Fibrillation
-continue HOUSE SERVANT Metoprolol, Eliquis
GERD
-HOUSE SERVANT Protonix
Recent UTI
-completed course of Levaquin
Anxiety
-HOUSE SERVANT Lexapro
HLD
-HOUSE SERVANT Atorvastatin
DVT PPx Eliquis
DNR, intubation OK - discussed at bedside on admission
51 minutes spent on patient care
Anticipated Discharge: 24 - 48 hours
Subjective/Interval History
-
Date of Service: January 26, 2024
continues to feel short of breath with exertion
Objective Data
-
Labs:
Laboratory Results
01/26/24
06:01
WBC 4.5 L
Hgb 9.4 L
Hct 29.9 L
Plt Count 280
Sodium 140
Potassium 4.6
Chloride 97 L
Carbon Dioxide 38 H
BUN 43 H
Creatinine 1.1 H
Glucose 141 H
Calcium 8.9
Vital Signs:
Vital Signs
Temp Pulse Resp BP Pulse Ox
98.3 F 90 18 129/69 96
01/26/24 11:45 01/26/24 11:45 01/26/24 11:45 01/26/24 11:45 01/26/24 11:45
I&O
01/25/24 01/26/24 01/27/24
06:59 06:59 06:59
Intake Total 480 / 480 600 / 600
Output Total 400 / 400
Balance 80 / 80 600 / 600
Review of Systems
-
History Source: Patient
All other systems: Reviewed and negative
Physical Exam
-
General: Other (mildly tachpneic )
HEENT: PERRLA
Respiratory: Rales and Decreased Breath Sounds
Cardiac: Regular Rhythm, S1/S2 and JVD
GI: Soft and Nontender
Musculoskeletal: No Edema and Other (diffuse bruising from prior fall )
Skin: Warm and Dry; Negative Rash
Neuro: AO x 3
Psych: Calm
Data Reviewed
-
Diagnostic Radiology: Report Reviewed by me
Labs: Labs Reviewed by me
[2024-01-26 15:00] VITALS: BP 127/63
[2024-01-26] MEDS: LIPITOR 40 MG PO (17:20)
[2024-01-26 19:30] VITALS: BP 131/71
[2024-01-26] MEDS: ELIQUIS 5 MG PO (20:21)
[2024-01-26] MEDS: MUCINEX 1200 MG PO (20:21)
[2024-01-26 23:10] VITALS: BP 121/66
[2024-01-27] VITALS (7 sets, daily range): BP systolic 116–141; BP diastolic 59–71; PULSE 83; O2SAT 98; BMI 24.8
[2024-01-27] MEDS: SYNTHROID 88 MCG PO (05:50)
[2024-01-27 06:20] LABS: Blood Urea Nitrogen 53 mg/dl (7-17); Calcium 8.5 mg/dl (8.4-10.2); Carbon Dioxide 36 mmol/L (22-30); Chloride 97 mmol/L (98-107); Estimated Creatinine Clearance 37 ml/min; Glucose 139 mg/dl (70-99); Potassium 4.2 mmol/L (3.5-5.1); Sodium 140 mmol/L (135-145); eGFR 55.21
[2024-01-27] MEDS: SYMBICORT 160/4.5 MCG INHALER 2 PUFF INH ×2 (07:33→19:52)
[2024-01-27] MEDS: SPIRIVA RESPIMAT 2.5 MCG 2 PUFF INH (07:33)
[2024-01-27] MEDS: DUONEB 3 ML INH ×4 (07:33→19:52)
[2024-01-27] MEDS: PROTONIX 40 MG PO ×2 (08:16→19:51)
[2024-01-27] MEDS: MUCINEX 1200 MG PO ×2 (08:16→19:51)
[2024-01-27] MEDS: NEURONTIN 300 MG PO ×2 (08:16→19:51)
[2024-01-27] MEDS: TYLENOL 1000 MG PO ×3 (08:16→21:21)
[2024-01-27] MEDS: LEXAPRO 5 MG PO (08:17)
[2024-01-27] MEDS: TOPROL XL 50 MG PO (08:17)
[2024-01-27] MEDS: ELIQUIS 5 MG PO ×2 (08:18→19:50)
[2024-01-27] MEDS: ULTRAM 25 MG PO ×2 (08:21→16:53)
[2024-01-27] MEDS: DECADRON 4 MG IV ×2 (08:22→19:50)
[2024-01-27] MEDS: LASIX 80 MG IV ×2 (08:22→16:43)
[2024-01-27] MEDS: LIDOCAINE 4% PATCH 1 PATCH TOPICAL (08:26)
--- NOTE | 2024-01-27 09:47 | W.PN.PUL3 ---
Today's Communication / Plan
-
Diuresis
Systemic steroids -can wean down to prednisone over next 24-48 hrs as she clinically improves
Eliquis
K>4, Mg>2
Maintain net negative fluid balance as tolerated
Up OOB as tolerated; PT/OT rec'd skilled rehab
Continue with Acapella
Pulmonary toilet - continue mucinex
Continue with supplemental O2, keeping SpO2 88-95% and check ambulatory pulse oximetry prior to discharge
Pulmonary service will continue to follow along
Assessment
-
83-year-old female patient with underlying COPD followed locally by Dr. Mcduffie and now at [facility], lung cancer status post radiation therapy and 3 recent right-sided thoracenteses who also has atrial fibrillation on Eliquis and PAD presents with
history of 1 night at [facility] last week after she fell on her right side treated for UTI and now presents with shortness of breath-pulmonary consulted for shortness of breath/COPD/history of lung cancer 01/25/2024.
Impression:
Acute HFpEF exacerbation (LVEF 60-65% via TTE from 01/25/2024)
COPD with acute exacerbation
Hypoxemic and hypercapnic respiratory failure-VBG 01/24/2024-7.25/80/35/61%
Atrial fibrillation on chronic Eliquis
Leukopenia
Anemia
Hyperglycemia - resolved
Conditions present prior to admission:
COPD-chronic oxygen 4 L.
Atrial fibrillation/Eliquis.
PAD/femorofemoral bypass 2020.
Hypertension.
Lung cancer status post XRT-[facility]-2019
Recurrent pleural effusion status post multiple thoracenteses-[facility]-history of tunneled catheter 08/2022
Heart failure preserved EF.
Plan
Respiratory decompensation likely related to CHF and persistent right pleural effusion with underlying COPD
Supplemental oxygen as needed to keep SpO2: 88-95%
DuoNebs QID with prn doses in between for breakthrough symptoms
Symbicort and Spiriva continue
Mucolytics with mucinex --> raised to 1200mg q12hr on 01/25
Currently on decadron 4 mg IV every 12 hours --> can wean to prednisone over next 1-2 days starting at 40mg daily and reduce by 10mg every 5th day until off
Aspiration precautions
Radiographs reviewed-moderate right pleural effusion-history of multiple thoracentesis and Pleurx catheter reportedly in the past
Thoracentesis if enough pleural fluid for evacuation --> chest ultrasound performed on 01/25/2024 showing insufficient fluid for thoracentesis
Diuresis as tolerated --> currently on lasix 80mg IV BID
Monitor renal function, electrolytes, intake/output, lower extremity edema and weight
Replace electrolytes as needed with K>4, Mg>2
Echocardiogram 01/25/2024 summarized below
Cardiology following-correspondence reviewed
Atrial fibrillation rate control
Chronic Eliquis 5 mg twice daily
Monitor hemoglobin
Transfuse as needed to keep Hb>7
Monitor blood sugar with goal BG >100 and <180mg/dL
Insulin supplementation as needed
PT/OT --> rec'd skilled rehab
DVT prophylaxis-on Eliquis
Nutrition
Early mobilization
Outpatient follow-up at [facility]-had followed locally with Dr. Estrada-last seen 08/11/2021 and canceled 03/20/2022 appointment
Pulmonary service will continue to follow along
Diagnostic data:
Chest x-ray 04/27/2023-stable mild CHF, mild T6 compression fracture
Chest x-ray 11/13/2023-moderate right pleural effusion
Chest x-ray 01/24/2024-moderate CHF and moderate right pleural effusion
CT chest 12/05/2021-no pulm embolism, large right pleural effusion, COPD changes, confluent soft tissue attenuation right hilum
CT chest 05/01/22-2.1 cm solid pulmonary nodule left lower lobe suspicious for cancer and large since 11/03/2020, severe centrilobular emphysema, osteoporosis
PET scan 05/31/2022-calcified pleural thickening, moderate size loculated right pleural effusion, 1.6 cm part solid pulmonary nodule suspicious for low-grade cancer
CT chest 08/22/2022-tunneled right pleural catheter with decreased right pleural fluid
Echocardiogram 01/25/2024-EF 60-65%, moderate tricuspid regurgitation, PA systolic 53
Pulmonary function studies-08/10/20: Mixed obstructive and restrictive lung disease. Forced vital capacity 2.02 L or 71% of predicted FEV1 1.22 L or 58% of predicted. 6% improvement postbronchodilator. FEV1/FVC ratio 60%. Mild to moderate restriction.
Total lung capacity 65% of predicted diffusing capacity severely reduced at 24% of predicted.
Total time spent today was 38 minutes for this encounter. Time includes reviewing laboratory test/imaging results, reviewing pertinent medical records, obtaining and reviewing medical history, performing an appropriate exam, ordering medications,
tests and procedures. Time also includes documentation of this encounter, coordinating patient care and communicating with other healthcare professionals. Total time does not include separately billed tests performed on this date of service.
Subjective Data
-
Date of Service:
Date of Service: January 27, 2024
Chief Complaint: Pulmonary Follow Up
Subjective:
Patient was seen and evaluated today at bedside. She is tired. Currently on 5 L/min via nasal cannula and breathing comfortably. Endorses a dry cough and is using Acapella and saying it is helping but still not bringing up her phlegm. She denies
chest pain, WALLACE, abdominal pain, nausea, fevers or chills.
Review of Systems
General: Other (Negative unless mentioned above)
Objective Data
Data Reviewed
Vital Signs / I&O / Oxygen:
Vital Signs
Temp Pulse Resp BP Pulse Ox
97.8 F 74 18 116/59 97
01/27/24 08:04 01/27/24 08:04 01/27/24 08:04 01/27/24 08:04 01/27/24 08:04
Intake and Output
01/26/24 01/27/24 01/28/24
06:59 06:59 06:59
Intake Total 600 / 600 1320 / 1320
Balance 600 / 600 1320 / 1320
SaO2 97
Nasal Cannula flow liters per 4
minute
Physical Exam
General: Respiratory Distress (negative), Comfortable, Chills (negative) and Sweats (negative)
HEENT: Normocephalic and Anicteric
Cardiovascular: Irregular Rhythm (Irregularly irregular) and Peripheral Edema (Trace lower extremity edema bilaterally)
Respiratory: Wheeze (negative), Crackles (Left base), Rhonchi (negative) and Non-Labored Respirations
GI: Soft, Non Distended, Non Tender and Normal Bowel Sounds
Neurology: Awake, Alert and Tremors (negative)
Skin: Warm, Dry, Cyanosis (negative) and Jaundice (negative)
Labs/Micro/Reports
Lab Data
01/26/24 06:01
01/27/24 05:03
Microbiology
01/24/24 17:11 Urine Urine Culture - Preliminary
Staphylococcus species
01/24/24 17:11 Nasal Swab Influenza Types A & B (RAMON) - Final
Negative for Influenza A & B, NAAT
Negative results must be combined with clinical observations
and patient history.
Nucleic Acid Amplification test (NAAT)performed on the
[employer] platform.
--- NOTE | 2024-01-27 12:07 | W.PN.HOSP.TC ---
Addendum entered and electronically signed by Mary Stiles MD 01/27/24 15:05:
staph in urine likely contaminant - patient without UTI symptoms and has just completed Levaquin course
Original Note:
Today's Communication/Plan
-
diuresis
appreciate consultants
PT/OT
[facility]
Assessment / Plan
Assessment / Plan
Ms. Shannan Lopes is a 83 yo woman with hx HFpEF, lung CA s/p radiation, COPD, chronic hypoxic respiratory failure on 4L, atrial fibrillation on Eliquis presents to the ER with shortness of breath found to be in heart failure, suspect COPD
exacerbation contributing as well.
Triage VS: T 98.2, P 82, RR 18, BP 122/66, SpO2 95%
LABS: WBC 9.1, Hg 10.6, PLT 279, Na 143, K+ 5.1, Cl 97, CO2 37, BUN 33, Cr 1.1
AB.26/80/35
CXR
IMPRESSION:
Moderate pulmonary edema with moderate right pleural effusion
Parenchymal airspace disease at the left lung base most consistent with scarring
Acute on chronic hypoxic and hypercarbic respiratory Failure
Right Pleural effusion
Acute COPD Exacerbation
Heart Failure preserved EF, Acute Exacerbation
-flu and covid negative
-although pCO2 reads 80, patient's bicarb is 37 - chronic retainer - she is awake and conversant without significant distress; she is now on her home O2 4L; remains symptomatic on exertion
-TTE with EF 60-65%
-continue IV lasix --> increased to BID
-not enough fluid for thoracentesis
-daily weights, strict I/O
-Decadron and Duonebs now - continue Decadron 4mg q12 hours; standing duonebs and PRN
-acapella
-TALENT CONSULTANT Trelegy
-Cardiology consult appreciated
-Pulmonary consult appreciated
-PT/OT consults recommend SNF; asking for [facility] eval per family request
Anemia
-Hg stable
Non-Ischemic Troponin Elevation
-2/2 stress from heart failure
Atrial Fibrillation
-continue TALENT CONSULTANT Metoprolol, Eliquis
GERD
-TALENT CONSULTANT Protonix
Recent UTI
-completed course of Levaquin
Anxiety
-TALENT CONSULTANT Lexapro
HLD
-TALENT CONSULTANT Atorvastatin
DVT PPx Eliquis
DNR, intubation OK - discussed at bedside on admission
51 minutes spent on patient care
Anticipated Discharge: 24 - 48 hours
Subjective/Interval History
-
Date of Service: January 27, 2024
she is feeling better and urinating more
Objective Data
-
Labs:
Laboratory Results
01/27/24
05:03
Sodium 140
Potassium 4.2
Chloride 97 L
Carbon Dioxide 36 H
BUN 53 H
Creatinine 1.0
Glucose 139 H
Calcium 8.5
Vital Signs:
Vital Signs
Temp Pulse Resp BP Pulse Ox
98.2 F 75 16 135/66 98
01/27/24 11:04 01/27/24 11:43 01/27/24 11:43 01/27/24 11:04 01/27/24 11:04
I&O
01/26/24 01/27/24 01/28/24
06:59 06:59 06:59
Intake Total 600 / 600 1320 / 1320
Balance 600 / 600 1320 / 1320
Review of Systems
-
History Source: Patient
All other systems: Reviewed and negative
Physical Exam
-
General: Other (mildly tachpneic )
HEENT: PERRLA
Respiratory: Rales and Decreased Breath Sounds
Cardiac: Regular Rhythm, S1/S2 and JVD
GI: Soft and Nontender
Musculoskeletal: No Edema and Other (diffuse bruising from prior fall )
Skin: Warm and Dry; Negative Rash
Neuro: AO x 3
Psych: Calm
Data Reviewed
-
Diagnostic Radiology: Report Reviewed by me
Labs: Labs Reviewed by me
--- NOTE | 2024-01-27 13:31 | W.PN.CD ---
Today's Communication / Plan
-
Cont IV diuresis consider siwtch to PO tomorrow
Impression / Plan
-
Impression/Plan: 83-year-old female with past medical history of paroxysmal A-fib on apixaban, COPD on 4 L nasal cannula, lung cancer, pleural effusions and anemia admitted with acute on chronic HFpEF after decreased UOP in the context of a UTI.
#HFpEF
-Acute on chronic.
-Echo 01/25/24: LV ejection fraction is 60-65% by Saavedra's method of discs. Mild concentric left ventricular hypertrophy. Moderate tricuspid regurgitation. Estimated pulmonary artery pressure of 53 mmHg. Assuming a right atrial pressure of 3 mmHg.
-dry weight ~ 145, cont IV diuresis
-CHF education- in hindsight, she has been having more sodium than she should
#Atrial Fibrillation
-Paroxysmal.
-Currently in NSR.
-continue metoprolol
-CHADS2-Vasc = 5 (CHF, HTN, Age x2, Female).
-Therapeutic anticoagulation with apixaban 5 mg BID- she has been on lower dose here - will adjust (weight greater than 60 kg and creat <1.5). Monitor to ensure this continues to be correct dosing.
-brief runs pSVT overnight- felt palps after steroids. Continue BB and monitoring.
#HTN
-Chronic, stable.
#COPD/Chronic hypoxic respiratory failure
-Chronic.
-Requires 4LNC at home.
-COVID/Influenza negative.
-VBG suggests acute on chronic respiratory acidosis with compensatory metabolic alkalosis.
-Continue inhaled bronchodilators. Getting steroids as well.
#Recent UTI
-s/p OP abx
#Anemia
-per primary
#Weakness and falls
-Relatively acute.
-PT/OT.
Subjective/Interval History:
Improved breathing and swelling
Physical Exam
Vital Signs/Labs
Vital Signs
Temp Pulse Resp BP Pulse Ox
98.2 F 75 16 135/66 98
01/27/24 11:04 01/27/24 11:43 01/27/24 11:43 01/27/24 11:04 01/27/24 11:04
01/26/24 01/27/24 01/28/24
06:59 06:59 06:59
Actual Weight 152 lb 149 lb 3.2 oz
01/26/24 06:01
01/27/24 05:03
Magnesium 2.1 mg/dl (1.6-2.3) 01/25/24 03:49
Triglycerides 63 mg/dl (10-149) 01/25/24 03:49
LDL Cholesterol, Calc 43 mg/dl 01/25/24 03:49
VLDL Cholesterol, Calc 12 mg/dl (0-30) 01/25/24 03:49
HDL Cholesterol 36 mg/dl 01/25/24 03:49
01/24/24
13:13
Orp-Q-Citecoinzcv Pept 8220
LAB Results
01/24/24 01/24/24 01/25/24
13:13 22:03 03:49
Troponin I 0.045 H* 0.028 0.020 D
Physical Exam
Constitutional: No acute distress
EENT: Anicteric
Cardiovascular: Rhythm & rate is regular and Pedal edema present (trace)
Respiratory: Respiratory effort normal and Lungs clear to auscul.
GI: Soft
Neuro/Psych: AO x 3
Data Reviewed
-
Date of Service: January 27, 2024
EKG: Tracing Personally Visualized and interpreted (sr)
Echo: Report Reviewed by me
Labs: Labs Reviewed by me
[2024-01-27] MEDS: LIPITOR 40 MG PO (18:12)
[2024-01-28] MEDS: ULTRAM 25 MG PO ×2 (01:10→20:03)
[2024-01-28 03:25] VITALS: BP 135/60
[2024-01-28] MEDS: SYNTHROID 88 MCG PO (05:40)
[2024-01-28 06:00] VITALS: BMI 25.6
[2024-01-28 07:35] VITALS: BP 112/63
[2024-01-28] MEDS: DUONEB 3 ML INH ×4 (08:22→19:59)
[2024-01-28] MEDS: SPIRIVA RESPIMAT 2.5 MCG 2 PUFF INH (08:22)
[2024-01-28] MEDS: SYMBICORT 160/4.5 MCG INHALER 2 PUFF INH ×2 (08:23→19:59)
[2024-01-28] MEDS: LASIX 80 MG IV ×2 (09:00→16:25)
[2024-01-28 09:03] VITALS: BMI 24.8
[2024-01-28] MEDS: PROTONIX 40 MG PO ×2 (09:06→19:58)
[2024-01-28] MEDS: MUCINEX 1200 MG PO ×2 (09:07→19:58)
[2024-01-28] MEDS: LEXAPRO 5 MG PO (09:07)
[2024-01-28] MEDS: TOPROL XL 50 MG PO (09:07)
[2024-01-28] MEDS: NEURONTIN 300 MG PO ×2 (09:07→19:58)
[2024-01-28] MEDS: LIDOCAINE 4% PATCH 1 PATCH TOPICAL (09:08)
[2024-01-28] MEDS: TYLENOL 1000 MG PO ×3 (09:08→22:02)
[2024-01-28] MEDS: ELIQUIS 5 MG PO ×2 (09:08→19:57)
[2024-01-28] MEDS: DECADRON 4 MG IV (09:09)
--- NOTE | 2024-01-28 09:12 | W.PN.CD ---
Addendum entered and electronically signed by Rajan Vega MD 01/28/24 09:18:
Patient has scheduled follow up Feb 05 2024 at 10:00 am with Jolly Prado
Original Note:
Today's Communication / Plan
-
IV diuresis today home PO lasix tomorrow
Plan for rehab later this week
We will sign off please call with questions/concerns.
Impression / Plan
-
Impression/Plan: 83-year-old female with past medical history of paroxysmal A-fib on apixaban, COPD on 4 L nasal cannula, lung cancer, pleural effusions and anemia admitted with acute on chronic HFpEF after decreased UOP in the context of a UTI.
#HFpEF
-Acute on chronic.
-Echo 01/25/24: LV ejection fraction is 60-65% by Saavedra's method of discs. Mild concentric left ventricular hypertrophy. Moderate tricuspid regurgitation. Estimated pulmonary artery pressure of 53 mmHg. Assuming a right atrial pressure of 3 mmHg.
-dry weight ~ 145, cont IV diuresis switch to PO home dose lasix 80 mg tomorrow
-CHF education- in hindsight, she has been having more sodium than she should
#Atrial Fibrillation
-Paroxysmal.
-Currently in NSR.
-continue metoprolol
-CHADS2-Vasc = 5 (CHF, HTN, Age x2, Female).
-Therapeutic anticoagulation with apixaban 5 mg BID- she has been on lower dose here - will adjust (weight greater than 60 kg and creat <1.5). Monitor to ensure this continues to be correct dosing.
-brief runs pSVT overnight- felt palps after steroids. Continue BB and monitoring.
#HTN
-Chronic, stable.
#COPD/Chronic hypoxic respiratory failure
-Chronic.
-Requires 4LNC at home.
-COVID/Influenza negative.
-VBG suggests acute on chronic respiratory acidosis with compensatory metabolic alkalosis.
-Continue inhaled bronchodilators. Getting steroids as well.
#Recent UTI
-s/p OP abx
#Anemia
-per primary
#Weakness and falls
-Relatively acute.
-PT/OT.
Subjective/Interval History:
Continues to feel improved, however, feeling weak from being in bed
Physical Exam
Vital Signs/Labs
Vital Signs
Temp Pulse Resp BP Pulse Ox
97.6 F 79 18 112/63 99
01/28/24 07:35 01/28/24 08:25 01/28/24 08:25 01/28/24 07:35 01/28/24 08:25
01/27/24 01/28/24 01/29/24
06:59 06:59 06:59
Actual Weight 149 lb 3.2 oz 154 lb 1 oz 149 lb 3.2 oz
01/26/24 06:01
Magnesium 2.1 mg/dl (1.6-2.3) 01/25/24 03:49
Triglycerides 63 mg/dl (10-149) 01/25/24 03:49
LDL Cholesterol, Calc 43 mg/dl 01/25/24 03:49
VLDL Cholesterol, Calc 12 mg/dl (0-30) 01/25/24 03:49
HDL Cholesterol 36 mg/dl 01/25/24 03:49
01/24/24
13:13
Wfe-O-Zvevxiaiwat Pept 8220
Physical Exam
Constitutional: No acute distress and Comfortable
EENT: Anicteric
Cardiovascular: Rhythm & rate is regular and Pedal edema present (trivial)
Respiratory: Respiratory effort normal and Lungs clear to auscul.
GI: Soft
Neuro/Psych: Alert and Oriented
Data Reviewed
-
Date of Service: January 28, 2024
EKG: Tracing Personally Visualized and interpreted (sr)
Echo: Report Reviewed by me
Labs: Labs Reviewed by me
--- NOTE | 2024-01-28 09:27 | W.PN.PUL3 ---
Today's Communication / Plan
-
Ongoing diuresis per team, improving
Transition IV steroids to PO taper today
Will wean o2 as tolerated, baseline use of 4L but prior to that had been stable on 3L
Home O2 eval
Outpatient pulm FU at [facility]
Encourage OOB/PT/OT
Assessment
-
83-year-old female patient with underlying COPD followed locally by Dr. Mcduffie and now at [place], lung cancer status post radiation therapy and 3 recent right-sided thoracenteses who also has atrial fibrillation on Eliquis and PAD presents with
history of 1 night at [facility] last week after she fell on her right side treated for UTI and now presents with shortness of breath-pulmonary consulted for shortness of breath/COPD/history of lung cancer 01/25/2024.
Impression:
Acute HFpEF exacerbation (LVEF 60-65% via TTE from 01/25/2024)
COPD with acute exacerbation
Hypoxemic and hypercapnic respiratory failure-VBG 01/24/2024-7.25/80/35/61%
Atrial fibrillation on chronic Eliquis
Leukopenia
Anemia
Hyperglycemia - resolved
Conditions present prior to admission:
COPD-chronic oxygen 4 L.
Atrial fibrillation/Eliquis.
PAD/femorofemoral bypass 2020.
Hypertension.
Lung cancer status post XRT-[place] [facility] [place]-2019
Recurrent pleural effusion status post multiple thoracenteses-[facility]-history of tunneled catheter 08/2022
Heart failure preserved EF.
Plan
Respiratory decompensation likely related to CHF and persistent right pleural effusion with underlying COPD
Currently 99% on 5L NC, wean to off as tolerated
Home O2 eval, she could likely need less than her 4L baseline amount, in the past she notes she was on 3L but had recently gotten worse
Supplemental oxygen as needed to keep SpO2: 88-95%
DuoNebs QID with prn doses in between for breakthrough symptoms
Symbicort and Spiriva continue
Mucolytics with mucinex --> raised to 1200mg q12hr on 01/25
Currently on decadron 4 mg IV every 12 hours --> transition to PO prednisone today
Aspiration precautions
Radiographs reviewed-moderate right pleural effusion-history of multiple thoracentesis and Pleurx catheter reportedly in the past
Thoracentesis if enough pleural fluid for evacuation --> chest ultrasound performed on 01/25/2024 showing insufficient fluid for thoracentesis
Diuresis as tolerated --> currently on lasix 80mg IV BID
Monitor renal function, electrolytes, intake/output, lower extremity edema and weight
Replace electrolytes as needed with K>4, Mg>2
Echocardiogram 01/25/2024 summarized below
Cardiology following-correspondence reviewed
Atrial fibrillation rate control
Chronic Eliquis 5 mg twice daily
Monitor hemoglobin
Transfuse as needed to keep Hb>7
Monitor blood sugar with goal BG >100 and <180mg/dL
Insulin supplementation as needed
PT/OT --> rec'd skilled rehab
DVT prophylaxis-on Eliquis
Nutrition
Early mobilization
Outpatient follow-up at [facility]-had followed locally with Dr. Estrada-last seen 08/11/2021 and canceled 03/20/2022 appointment
Diagnostic data:
Chest x-ray 04/27/2023-stable mild CHF, mild T6 compression fracture
Chest x-ray 11/13/2023-moderate right pleural effusion
Chest x-ray 01/24/2024-moderate CHF and moderate right pleural effusion
CT chest 12/05/2021-no pulm embolism, large right pleural effusion, COPD changes, confluent soft tissue attenuation right hilum
CT chest 05/01/22-2.1 cm solid pulmonary nodule left lower lobe suspicious for cancer and large since 11/03/2020, severe centrilobular emphysema, osteoporosis
PET scan 05/31/2022-calcified pleural thickening, moderate size loculated right pleural effusion, 1.6 cm part solid pulmonary nodule suspicious for low-grade cancer
CT chest 08/22/2022-tunneled right pleural catheter with decreased right pleural fluid
Echocardiogram 01/25/2024-EF 60-65%, moderate tricuspid regurgitation, PA systolic 53
Pulmonary function studies-08/10/20: Mixed obstructive and restrictive lung disease. Forced vital capacity 2.02 L or 71% of predicted FEV1 1.22 L or 58% of predicted. 6% improvement postbronchodilator. FEV1/FVC ratio 60%. Mild to moderate restriction.
Total lung capacity 65% of predicted diffusing capacity severely reduced at 24% of predicted.
-----
Total time spent today was 50 minutes for this encounter. Time includes reviewing laboratory test/imaging results, reviewing pertinent medical records, obtaining and reviewing medical history, performing an appropriate exam, ordering medications,
tests and procedures. Time also includes documentation of this encounter, coordinating patient care and communicating with other healthcare professionals. Total time does not include separately billed tests performed on this date of service.
Subjective Data
-
Date of Service:
Date of Service: January 28, 2024
Chief Complaint: Pulmonary Follow Up
Subjective:
No new events ON, she does feel her SOB is improving
Remains on 5L, 99%
Baseline O2 use is around 3-4L
Objective Data
Data Reviewed
Vital Signs / I&O / Oxygen:
Vital Signs
Temp Pulse Resp BP Pulse Ox
97.6 F 79 18 112/63 99
01/28/24 07:35 01/28/24 08:25 01/28/24 08:25 01/28/24 07:35 01/28/24 08:25
Intake and Output
01/27/24 01/28/24 01/29/24
06:59 06:59 06:59
Intake Total 1320 / 1320
Balance 1320 / 1320
SaO2 99
Nasal Cannula flow liters per 5
minute
Physical Exam
General: Respiratory Distress (negative), Comfortable, Chills (negative) and Sweats (negative)
HEENT: Normocephalic, Anicteric and Moist Mucous Membranes
Cardiovascular: S1-S2, Irregular Rhythm (Irregularly irregular) and Peripheral Edema (Trace lower extremity edema bilaterally)
Respiratory: Wheeze (negative), Crackles (Left base), Rhonchi (negative) and Non-Labored Respirations
GI: Soft, Non Distended, Non Tender and Normal Bowel Sounds
Neurology: Awake, Alert, No Motor Deficits and Tremors (negative)
Skin: Warm, Dry, Cyanosis (negative) and Jaundice (negative)
Labs/Micro/Reports
Lab Data
01/26/24 06:01
Microbiology
01/24/24 17:11 Urine Urine Culture - Final
[2024-01-28 09:30] LABS: Blood Urea Nitrogen 53 mg/dl (7-17); Calcium 8.6 mg/dl (8.4-10.2); Chloride 94 mmol/L (98-107); Estimated Creatinine Clearance 37 ml/min; Glucose 97 mg/dl (70-99); Potassium 4.1 mmol/L (3.5-5.1); Sodium 140 mmol/L (135-145); eGFR 55.21
[2024-01-28 09:42] LABS: Carbon Dioxide 34 mmol/L (22-30)
[2024-01-28 11:17] VITALS: BP 125/60
--- NOTE | 2024-01-28 15:08 | W.PN.HOSP.TC ---
Today's Communication/Plan
-
Wean to Po pred
PO lasix tomorrow
wean to 3L
Assessment / Plan
Assessment / Plan
Ms. Shannan Lopes is a 83 yo woman with hx HFpEF, lung CA s/p radiation, COPD, chronic hypoxic respiratory failure on 4L, atrial fibrillation on Eliquis presents to the ER with shortness of breath found to be in heart failure, suspect COPD
exacerbation contributing as well.
Triage VS: T 98.2, P 82, RR 18, BP 122/66, SpO2 95%
LABS: WBC 9.1, Hg 10.6, PLT 279, Na 143, K+ 5.1, Cl 97, CO2 37, BUN 33, Cr 1.1
AB.26/80/35
CXR
IMPRESSION:
Moderate pulmonary edema with moderate right pleural effusion
Parenchymal airspace disease at the left lung base most consistent with scarring
Acute on chronic hypoxic and hypercarbic respiratory Failure
Right Pleural effusion
Acute COPD Exacerbation
Heart Failure preserved EF, Acute Exacerbation
-flu and covid negative
-although pCO2 reads 80, patient's bicarb is 37 - chronic retainer - she is awake and conversant without significant distress; she is now on her home O2 4L; remains symptomatic on exertion
-TTE with EF 60-65%
-continue IV lasix --> increased to BID - switch to PO tomorrow
-not enough fluid for thoracentesis
-daily weights, strict I/O
-Decadron and Duonebs now - Decadron 4mg q12 hours - switch to PO pred; standing duonebs and PRN
-wean to 3L(baseline)
-acapella
-ASSISTANT VICE PRESIDENT Trelegy
-Cardiology consult appreciated
-Pulmonary consult appreciated
-PT/OT consults recommend SNF; asking for [facility] eval per family request
-Outpatient pulm FU at [facility]
Anemia
-Hg stable
Non-Ischemic Troponin Elevation
-2/2 stress from heart failure
Atrial Fibrillation
-continue ASSISTANT VICE PRESIDENT Metoprolol, Eliquis
GERD
-ASSISTANT VICE PRESIDENT Protonix
Recent UTI
-completed course of Levaquin
Anxiety
-ASSISTANT VICE PRESIDENT Lexapro
HLD
-ASSISTANT VICE PRESIDENT Atorvastatin
DVT PPx Eliquis
DNR, intubation OK - discussed at bedside on admission
Anticipated Discharge: Within 24 hours
Subjective/Interval History
-
Date of Service: January 28, 2024
no acute events, resp status improves
Objective Data
-
Labs:
Laboratory Results
01/28/24
07:52
Sodium 140
Potassium 4.1
Chloride 94 L
Carbon Dioxide 34 H
BUN 53 H
Creatinine 1.0
Glucose 97
Calcium 8.6
Vital Signs:
Vital Signs
Temp Pulse Resp BP Pulse Ox
97.9 F 71 18 125/60 99
01/28/24 11:17 01/28/24 11:30 01/28/24 11:30 01/28/24 11:17 01/28/24 11:30
I&O
01/27/24 01/28/24 01/29/24
06:59 06:59 06:59
Intake Total 1320 / 1320
Balance 1320 / 1320
Review of Systems
-
History Source: Patient
All other systems: Reviewed and negative
Data Reviewed
-
Diagnostic Radiology: Report Reviewed by me
Labs: Labs Reviewed by me
[2024-01-28 15:51] VITALS: BP 126/67
--- NOTE | 2024-01-28 16:22 | CM ---
manager data warehousing reviewed patient's chart and met with patient and physical therapy are recommending skilled rehab for patient, per patient she is agreeable to acute rehab at [place], referral sent and admissions at [place] to evaluate patient, referral also
sent to [facility] [place] as a back up plan however, patient may just return to home if not accepted at [facility].
Plan; To follow up with admissions at [place] to see if they have accepted patient.
--- NOTE | 2024-01-28 17:34 | CON.MD ---
Addendum entered and electronically signed by Sadi Palacios MD 01/29/24 10:00:
Peripheral artery disease�: Aspirin, statin
<del>Coronary</del> <del>artery</del> <del>disease�:</del> <del>Aspirin,</del> <del>statin,</del> <del>beta-rachele��</del>
Original Note:
Consultation - Medical
-
Referring Provider:�Dr. Mary Stiles
Chief Complaint:�Heart failure
�
History of Present Illness:�83-year-old female with PMH (as below) presented to [facility] on 01/24/2024 with shortness of breath. She had a fall approximately 1 week ago on her right side and was seen at [place] with 1 night of
hospitalization. Treated with a UTI. Since then feeling progressively short of breath and weaker with cough and increasing shortness of breath. Found to be in acute on chronic hypoxic and hypercarbic respiratory failure with acute COPD
exacerbation. Echocardiogram on 01/25/2024 with EF 60-65%. Required intense IV furosemide diuresis. Started on dapagliflozin. Started on systemic steroids as well as Mucinex. Transition to oral steroids and oral diuretics. Breathing is getting
better now, very fatigued with decline over the past couple of weeks. Had fall and was even more limited.
�
Past Medical History:�HFpEF, COPD, chronic hypoxic respiratory failure on 4L, atrial fibrillation on Eliquis, PAD, HTN, HLD, lung CA s/p radiation, GERD, anxiety, pneumonia, right pleural effusion, CKD, UTI, hypothyroidism
Procedure History:�s/p fem-fem bypass 2020, appendectomy, thyroidectomy, AAA repair
Family History:�None pertinent
�
Social History:�
Functional Level Premorbidly:�Independent with all activities�except for has a home caregiver once a week to assist with some home activities. Her granddaughter recently moved home to assist with her care
Functional Level Currently:�Min assist bed mobility and transfers. Min assist ambulating 20 feet x 1 with rolling walker with 4 L of oxygen
�
Tobacco:�Former
Alcohol:�Denies�
Drug use:�Denies�
�
Lives with:�Alone
24-hour assistance available:�No
Number of floors:�2
# steps to enter:�2
# steps to second floor: Chair glide up to the second floor and down to the basement
Driving:�
Occupation:�Retired
�
�
Allergies:�
Allergy/AdvReac Type Severity Reaction Status Date / Time
No Known Allergies Allergy Verified 04/27/23 10:42
�
Review of Systems:�
Constitutional: (x) abNormal _fatigue
Eye: (x) Normal _
Ear/Nose/Throat: (x) Normal _
Respiratory: (x) abNormal _COPD
Cardiovascular: (x) abNormal _CHF exacerbation
Gastrointestinal: (x) Normal _
Genitourinary: (x) Normal _
Musculoskeletal: (x) abNormal _low back pain
Integumentary: (x) Normal _
Neurologic: (x) Normal _
Psychiatric: (x) Normal _
Endocrine: (x) Normal _
Hematologic/Lymphatic: (x) Normal _
Allergic/Immunologic: (x) Normal _
�
Medications:�
Active Current Visit Medication List
Category Date Time Status
Acetaminophen [Tylenol] Med 01/24/24 22:00 Active
1,000 mg PO TID
Apixaban [Eliquis] Med 01/26/24 20:00 Active
5 mg PO BID
Atorvastatin [Lipitor] Med 01/24/24 18:00 Active
40 mg PO QPM
Budesonide/Formoterol 160/4.5 [Symbicort 160/4.5 Mcg Med 01/24/24 20:00 Active
Inhaler]
2 puff INH R BID
Docusate W/Senna [Senokot-S] Med 01/28/24 20:00 Active
1 tablet PO BID
Escitalopram Oxalate [Lexapro] Med 01/25/24 08:00 Active
5 mg PO DAILY
Flush (0.9% Sodium Chloride) [Flush (Nss)] Med 01/24/24 19:00 Active
See Dose Instructions IV PER PROTOCOL
Furosemide [Lasix] Med 01/26/24 16:00 Active
80 mg IV BID AT 0800,1600
Furosemide [Lasix] Med 01/29/24 08:00 Active
80 mg PO DAILY
Gabapentin [Neurontin] Med 01/24/24 20:00 Active
300 mg PO BID
Guaifenesin [Mucinex] Med 01/26/24 18:46 Active
1,200 mg PO Q12
Ipratropium/Albuterol Sulfate [Duoneb] Med 01/24/24 17:59 Active
3 ml INH R Q4HPRN PRN
Ipratropium/Albuterol Sulfate [Duoneb] Med 01/24/24 20:00 Active
3 ml INH R QID
Levothyroxine [Synthroid] Med 01/25/24 06:00 Active
88 mcg PO DAILY @ 0600
Lidocaine [Lidocaine 4% Patch] Med 01/25/24 12:30 Active
1 patch TOPICAL DAILY
Melatonin Med 01/26/24 02:54 Active
5 mg PO HS PRN
Metoprolol Xl [Toprol Xl] Med 01/25/24 09:00 Active
50 mg PO DAILY
Pantoprazole [Protonix] Med 01/24/24 20:00 Active
40 mg PO BID
Polyethylene Glycol Powder [Miralax] Med 01/24/24 17:59 Active
17 grams PO DAILYPRN PRN
Prednisone [Deltasone] Med 01/29/24 08:00 Active
40 mg PO DAILY
Remove Patch [Remove Lidocaine Patch] Med 01/25/24 20:00 Active
1 patch REMOVE DAILY@1999
Tiotropium [place] 2.5 Mcg [Spiriva Respimat 2.5 Mcg] Med 01/25/24 08:00 Active
2 puff INH R DAILY
Tramadol HCl [Ultram] Med 01/24/24 17:59 Active
25 mg PO Q6HPRN PRN
methocarbamol Med 01/24/24 17:59 Active
See Dose Instructions PO TIDPRN PRN
�
Vitals:�
Temp Pulse Resp BP Pulse Ox
97.8 F 74 20 126/67 97
01/28/24 15:51 01/28/24 15:51 01/28/24 15:51 01/28/24 15:51 01/28/24 15:51
Height 5 ft 5 in
Actual Weight 67.676 kg
Body Mass Index (BMI) 24.8
�
Physical Exam:�
General Appearance/Observation: Well-developed, well-nourished female in no apparent distress.� On 3 L O2 via nasal cannula
Pain/Comfort Assessment: Denies�
Mood/Affect: Appropriate�
�
Integumentary/Operative Site:�No lesions noted during course of exam
�
Eyes: Conjunctiva/Lids: normal���� Pupils: pupils equal round and reactive to light and Accommodation�
Ears/Nose/Throat: oral mucosa moist,� throat clear.������������ Lips/Teeth/Gums: normal�
Cardiovascular: Heart: regular, no murmur�
Pulses: dorsalis pedis 2+ bilaterally�
Respiratory: Respiratory Effort/Chest Expansion: normal������� Auscultation: Clear to auscultation bilaterally�
Gastrointestinal: abdomen not tender, no distension, normal abdominal bowel sounds
Genitourinary: No Shea�
Extremities:�Edema: None�Cyanosis: None�Trophic�changes: None
�
Neurology Exam:
Orientation: Alert, Oriented to self, Time, Place�
Memory: Intact for recent medical concerns
Repetition: Intact
Comprehension: Intact
Two step command: Intact
Cranial Nerves:
�� CNII:�Pupillary light reflex: Intact���
�� CN III, IV, : Extraocular muscles: Intact�
�� CN V:�Facial Sensation�at�Forehead: Intact,�Maxilla: Intact,�Mandible: Intact
�� CN VII:�Facial movement: Symmetric
�� CN VIII:�Hearing: Normal
�� CN IX/X:�Speech & swallow: Normal,�Position of Uvula: Midline
�� CN XI:�Shoulder shrug: Symmetric
�� CN XII:�Tongue protrusion: Midline
Sensory:
�� Light touch: Intact in bilateral upper and lower extremities
�
Reflexes:
�� Biceps: 2+ bilaterally
�� Brachioradialis: 2+ bilaterally
�� Triceps: 2+ bilaterally
�� Patellar: 2+ bilaterally
�� Achilles: 2+ bilaterally
�� Babinski: Down going bilaterally
�� Clonus: None
�� Kade: Negative bilaterally�
Cerebellar: Dysmetria/Ataxia: None�
Musculoskeletal: Motor: (Manual muscle scale 0-5)�
Muscle SA EF WE EE FF FA HF KE DF EHL PF
Right� 4 5 5 5 5 4 4 5 5 5 5
Left 4 5 5 5 5 4 4 5 5 5 5
�
Tone: Normal in all extremities�
Range of Motion: Passively within normal limits in all extremities�
�
Lab Results
Laboratory Data
01/26/24 06:01
01/28/24 07:52
Total Bilirubin 0.3 mg/dl (0.2-1.3) 01/25/24 03:49
AST 21 U/L (14-36) 01/24/24 13:13
ALT 18 U/L (0-35) 01/24/24 13:13
Alkaline Phosphatase 98 U/L (38-126) 01/24/24 13:13
Total Protein 6.7 g/dl (6.3-8.2) 01/24/24 13:13
Albumin 3.5 g/dl (3.5-5.0) 01/24/24 13:13
�
Diagnostic Results:�as per HPI�
�
Assessment
83-year-old female with PMH( HFpEF, COPD, chronic hypoxic respiratory failure on 4L, atrial fibrillation on Eliquis, PAD, HTN, HLD, lung CA s/p radiation, GERD, anxiety, pneumonia, right pleural effusion, CKD, UTI, hypothyroidism) admitted with an
acute on chronic CHF and COPD exacerbation.
Plan�
PM&R�PT/OT to increase independence with ADLs, improve balance, coordination, endurance, strength, mobility, community reintegration, decreased burden of care on others and family education.�
�
CHF: EF 60-65%, beta rachele, Lasix monitor fluid status��
COPD: Continue nebulizer treatments DuoNeb and Pulmicort.� On tapering dose of steroids.� Mucinex.
�
HTN: continue medications, monitor closely�
HLD: Statin�
Coronary artery disease�: Aspirin, statin, beta-rachele�
Atrial fibrillation:�Eliquis anticoagulation and rate control with metoprolol.�������������������������������������������
Hypothyroidism: levothyroxine�
Leukopenia: Improving, 4.5 on 01/25
Anemia: 9.4 from 9.9 from 8.9, monitor
Anxiety: Monitor mood, adjust Lexapro as needed.�
Skin: monitor for pressure sores/rashes/lesions.�
Low back pain: acetaminophen, tramadol, or methocarbamol as needed.� Gabapentin 300 mg twice daily, lidocaine patch, modalities
Bowel: Colace and Senna, PRN bisacodyl.�
Bladder: Time void, PVRs, PRN straight cath.�
GI Prophylaxis: Pantoprazole�
DVT Prophylaxis: Mechanical and Eliquis.�
Pulmonary: Incentive spirometry�
Safety: Continue to reinforce assistance with all transfers.�
Code Status:�Limited DNR�per chart
Dispo�(date/plan/equipment needs): Home with family care.� Social history reviewed.�
Functional and Medical Goals:�Modified Independent with ADL�s, ambulation, transfers�
Discharge Destination:��Acute inpatient rehabilitation for cardiac rehab
�
Summary of recommendations:
-�Discharge Destination:��Acute inpatient rehabilitation for cardiac rehab
CHF: EF 60-65%, beta rachele, Lasix monitor fluid status��
COPD: Continue nebulizer treatments DuoNeb and Pulmicort.� On tapering dose of steroids.� Mucinex.
Low back pain: acetaminophen, tramadol, or methocarbamol as needed.� Gabapentin 300 mg twice daily, lidocaine patch, modalities�
Thank you for allowing me to care for your patient. Please contact me with any questions or concerns.
[2024-01-28] MEDS: LIPITOR 40 MG PO (18:09)
[2024-01-28] MEDS: SENOKOT-S 1 TABLET PO (19:59)
[2024-01-28 22:54] VITALS: BP 126/62
[2024-01-29] MEDS: ULTRAM 25 MG PO ×2 (02:10→19:05)
[2024-01-29 04:51] VITALS: BMI 25.3
[2024-01-29] MEDS: SYNTHROID 88 MCG PO (04:51)
[2024-01-29 06:45] LABS: Blood Urea Nitrogen 66 mg/dl (7-17); Calcium 8.6 mg/dl (8.4-10.2); Carbon Dioxide 37 mmol/L (22-30); Chloride 94 mmol/L (98-107); Estimated Creatinine Clearance 37 ml/min; Glucose 85 mg/dl (70-99); Potassium 3.9 mmol/L (3.5-5.1); Sodium 141 mmol/L (135-145); eGFR 55.21
[2024-01-29] MEDS: DUONEB 3 ML INH ×4 (07:12→20:16)
[2024-01-29] MEDS: SPIRIVA RESPIMAT 2.5 MCG 2 PUFF INH (07:12)
[2024-01-29] MEDS: SYMBICORT 160/4.5 MCG INHALER 2 PUFF INH ×2 (07:12→20:15)
--- NOTE | 2024-01-29 07:42 | PN.CDI ---
CDI
- -
CDI:
Physician Documentation Request
Admit Date: 01/24/24 17:14
Dear Doctor Daysi,
Please review the following and provide your response in the progress notes.
Clinical Indicators:
Pt admitted with Acute respiratory failure, COPD exacerbation, and acute heart failure.
01/27 progress note: 'Non-Ischemic Troponin Elevation-2/2 stress from heart failure.'
Laboratory Tests
01/24/24 01/24/24 01/25/24
13:13 22:03 03:49
Troponin I 0.045 H* 0.028 0.020 D
Based on the above, could you clarify in the progress notes, the appropriate diagnosis, if significant, that supports the above abnormalities and additional evaluation, monitoring and/or treatment rendered:
Non-Ischemic myocardial injury
Insignificant abnormal lab values
Other
Use of terms such as suspected, likely, concern for, or probable (associated with a specific diagnosis that is being evaluated, monitored, or treated as if it exists) are acceptable and can be coded in the inpatient setting, when documented at the
time of discharge.
Thank you,
Kallie Bauer RN, BSN
CDI Specialist
Available via [place] [employer]
Please use your independent medical judgment in providing your response.
[2024-01-29 07:54] VITALS: BP 140/66
[2024-01-29] MEDS: DELTASONE 40 MG PO (08:48)
[2024-01-29] MEDS: LEXAPRO 5 MG PO (08:48)
[2024-01-29] MEDS: LASIX 80 MG PO (08:48)
[2024-01-29] MEDS: LIDOCAINE 4% PATCH 1 PATCH TOPICAL (08:48)
[2024-01-29] MEDS: ELIQUIS 5 MG PO ×2 (08:48→19:05)
[2024-01-29] MEDS: NEURONTIN 300 MG PO ×2 (08:49→19:05)
[2024-01-29] MEDS: MUCINEX 1200 MG PO (08:49)
[2024-01-29] MEDS: PROTONIX 40 MG PO ×2 (08:49→19:05)
[2024-01-29] MEDS: TOPROL XL 50 MG PO (08:50)
[2024-01-29] MEDS: TYLENOL 1000 MG PO ×3 (08:50→22:29)
[2024-01-29] MEDS: SENOKOT-S 1 TABLET PO ×2 (08:50→19:05)
--- NOTE | 2024-01-29 09:17 | W.PN.PUL3 ---
Today's Communication / Plan
-
Remains on 3L at rest, likely needs 4L with exertion (desats with PT), await formal Home eval (baseline use about 3-4L)
Continue lasix, this is transitioned to PO (home dose)
PT/OT evals, recommend SNF placement
She does need aggressive rehab, OOB--not improving while sedentary inpatient
Prednisone taper
OP Pulm FU recommended
Hopeful discharge planning per team
We will sign off at this time, please call with questions
Assessment
-
83-year-old female patient with underlying COPD followed locally by Dr. Mcduffie and now at [facility], lung cancer status post radiation therapy and 3 recent right-sided thoracenteses who also has atrial fibrillation on Eliquis and PAD presents with
history of 1 night at [facility] last week after she fell on her right side treated for UTI and now presents with shortness of breath-pulmonary consulted for shortness of breath/COPD/history of lung cancer 01/25/2024.
Impression:
Acute HFpEF exacerbation (LVEF 60-65% via TTE from 01/25/2024)
COPD with acute exacerbation
Hypoxemic and hypercapnic respiratory failure-VBG 01/24/2024-7.25/80/35/61%
Atrial fibrillation on chronic Eliquis
Leukopenia
Anemia
Hyperglycemia - resolved
Conditions present prior to admission:
COPD-chronic oxygen 4 L.
Atrial fibrillation/Eliquis.
PAD/femorofemoral bypass 2020.
Hypertension.
Lung cancer status post XRT-[facility]-2019
Recurrent pleural effusion status post multiple thoracenteses-[facility]-history of tunneled catheter 08/2022
Heart failure preserved EF.
Plan
Respiratory decompensation likely related to CHF and persistent right pleural effusion with underlying COPD
Currently >90% on 3L NC, wean to off as tolerated
Working with PT--appears to need possibly up to 4L with exertion, but recovers on 3L with rest; await Home O2 eval
Supplemental oxygen as needed to keep SpO2: 88-95%
DuoNebs QID with prn doses in between for breakthrough symptoms
Symbicort and Spiriva continue
Mucolytics with mucinex --> raised to 1200mg q12hr on 01/25
Currently on decadron 4 mg IV every 12 hours --> transitioned to PO prednisone, continue taper at discharge
Aspiration precautions
Radiographs reviewed-moderate right pleural effusion-history of multiple thoracentesis and Pleurx catheter reportedly in the past
Thoracentesis if enough pleural fluid for evacuation --> chest ultrasound performed on 01/25/2024 showing insufficient fluid for thoracentesis
Diuresis as tolerated --> currently on lasix 80mg IV BID
Monitor renal function, electrolytes, intake/output, lower extremity edema and weight
Replace electrolytes as needed with K>4, Mg>2
Echocardiogram 01/25/2024 summarized below
Cardiology following-correspondence reviewed
Atrial fibrillation rate control
Chronic Eliquis 5 mg twice daily
Monitor hemoglobin
Transfuse as needed to keep Hb>7
Monitor blood sugar with goal BG >100 and <180mg/dL
Insulin supplementation as needed
PT/OT --> rec'd skilled rehab
DVT prophylaxis-on Eliquis
Nutrition
Early mobilization
Outpatient follow-up at [facility]-had followed locally with Dr. Estrada-last seen 08/11/2021 and canceled 03/20/2022 appointment
D/c to SNF per PT note
Diagnostic data:
Chest x-ray 04/27/2023-stable mild CHF, mild T6 compression fracture
Chest x-ray 11/13/2023-moderate right pleural effusion
Chest x-ray 01/24/2024-moderate CHF and moderate right pleural effusion
CT chest 12/05/2021-no pulm embolism, large right pleural effusion, COPD changes, confluent soft tissue attenuation right hilum
CT chest 05/01/22-2.1 cm solid pulmonary nodule left lower lobe suspicious for cancer and large since 11/03/2020, severe centrilobular emphysema, osteoporosis
PET scan 05/31/2022-calcified pleural thickening, moderate size loculated right pleural effusion, 1.6 cm part solid pulmonary nodule suspicious for low-grade cancer
CT chest 08/22/2022-tunneled right pleural catheter with decreased right pleural fluid
Echocardiogram 01/25/2024-EF 60-65%, moderate tricuspid regurgitation, PA systolic 53
Pulmonary function studies-08/10/20: Mixed obstructive and restrictive lung disease. Forced vital capacity 2.02 L or 71% of predicted FEV1 1.22 L or 58% of predicted. 6% improvement postbronchodilator. FEV1/FVC ratio 60%. Mild to moderate restriction.
Total lung capacity 65% of predicted diffusing capacity severely reduced at 24% of predicted.
-----
Total time spent today was 50 minutes for this encounter. Time includes reviewing laboratory test/imaging results, reviewing pertinent medical records, obtaining and reviewing medical history, performing an appropriate exam, ordering medications,
tests and procedures. Time also includes documentation of this encounter, coordinating patient care and communicating with other healthcare professionals. Total time does not include separately billed tests performed on this date of service.
Subjective Data
-
Date of Service:
Date of Service: January 29, 2024
Chief Complaint: Pulmonary Follow Up
Subjective:
Doing well today, reports she feels anxious bc her O2 was decreased
Otherwise, she offers no new complaints
Objective Data
Data Reviewed
Vital Signs / I&O / Oxygen:
Vital Signs
Temp Pulse Resp BP Pulse Ox
97.4 F 85 20 140/66 95
01/29/24 07:54 01/29/24 07:54 01/29/24 07:54 01/29/24 07:54 01/29/24 07:54
Intake and Output
01/28/24 01/29/24 01/30/24
06:59 06:59 06:59
Intake Total 1300 / 1300
Balance 1300 / 1300
SaO2 95
Nasal Cannula flow liters per 3
minute
Physical Exam
General: Respiratory Distress (negative), Comfortable, Chills (negative) and Sweats (negative)
HEENT: Normocephalic, Anicteric and Moist Mucous Membranes
Cardiovascular: S1-S2, Irregular Rhythm (Irregularly irregular) and Peripheral Edema (Trace lower extremity edema bilaterally)
Respiratory: Wheeze (negative), Crackles (Left base), Rhonchi (negative) and Non-Labored Respirations
GI: Soft, Non Distended, Non Tender and Normal Bowel Sounds
Neurology: Awake, Alert, Oriented, No Motor Deficits and Tremors (negative)
Skin: Warm, Dry, Cyanosis (negative) and Jaundice (negative)
Labs/Micro/Reports
Lab Data
01/26/24 06:01
01/29/24 06:03
Microbiology
01/24/24 17:11 Urine Urine Culture - Final
--- NOTE | 2024-01-29 09:28 | CM ---
Addendum entered by Ting 01/29/24 10:17:
Per MD, transfer on hold.
[facility] Updated.
Original Note:
Patient seen bedside.
PMR consultation completed and reviewed.
Patient for transfer to [facility] once bed available.
Continues on oxygen 3 liters.
IMM completed.
Plan: [facility] once bed available.
--- NOTE | 2024-01-29 10:07 | W.HF.CON ---
Heart Failure
- LV Function
Left ventricular function study result: LV Ejection fraction >/= 50%
Ejection Fraction Percentage: 60-65
- ARNI
Patient already on ARNI: No
Heart Failure ARNI Not Indicated: LV Ejection Fraction >/= 40%
- ACEI/ARB
Patient already on ACEI/ARB: No
Heart Failure ACEI/ARB Not Indicated: LV Ejection Fraction > 40%
- Beta Pee
Patient already on Evidence Based Beta Pee: Yes
- Mineralocorticord Receptor Antagonist
Patient already on MRA: No
Heart Failure MRA Not Indicated: LV Ejection Fraction > 40%
- SGLT-2 Inhibitor
Patient already on SGLT-2 Inhibitor: No
Heart Failure SGLT-2 Inhibitor Not Indicated: LV Ejection Fraction >40%
- Afib Anticoagulation
Patient already on Anticoagulation for Afib: Yes
- NYHA CHF Classification
NYHA CHF Classification Level: Class III - Symptoms w/ min exertion, interferes w/ nml daily activity (COPD with home oxygen)
- ACC/AHA Stage
ACC/AHA Stage: Stage C: Symptomatic Heart Failure
[2024-01-29 10:44] VITALS: BP 149/78; PULSE 76; O2SAT 96
[2024-01-29] MEDS: SOLU-MEDROL PF 60 MG IV (11:49)
--- NOTE | 2024-01-29 14:13 | W.PN.HOSP.TC ---
Today's Communication/Plan
-
IV steroids today
switch to po pred loree
po lasix today
Assessment / Plan
Assessment / Plan
Ms. Shannan Lopes is a 83 yo woman with hx HFpEF, lung CA s/p radiation, COPD, chronic hypoxic respiratory failure on 4L, atrial fibrillation on Eliquis presents to the ER with shortness of breath found to be in heart failure, suspect COPD
exacerbation contributing as well.
Triage VS: T 98.2, P 82, RR 18, BP 122/66, SpO2 95%
LABS: WBC 9.1, Hg 10.6, PLT 279, Na 143, K+ 5.1, Cl 97, CO2 37, BUN 33, Cr 1.1
AB.26/80/35
CXR
IMPRESSION:
Moderate pulmonary edema with moderate right pleural effusion
Parenchymal airspace disease at the left lung base most consistent with scarring
Acute on chronic hypoxic and hypercarbic respiratory Failure
Right Pleural effusion
Acute COPD Exacerbation
Heart Failure preserved EF, Acute Exacerbation
-flu and covid negative
-although pCO2 reads 80, patient's bicarb is 37 - chronic retainer - she is awake and conversant without significant distress; she is now on her home O2 4L; remains symptomatic on exertion
-TTE with EF 60-65%
-continue IV lasix --> switched to PO dosing
-not enough fluid for thoracentesis
-daily weights, strict I/O
-Decadron and Duonebs now - Decadron 4mg q12 hours - Solumedrol iv dose today; switch to PO pred loree; standing duonebs and PRN
-wean to 3L(baseline)
-acapella
-ART GILDER Trelegy
-Cardiology consult appreciated
-Pulmonary consult appreciated
-PT/OT consults recommend SNF; asking for [facility] eval per family request
-Outpatient pulm FU at [facility]
Anemia
-Hg stable
Non-Ischemic Troponin Elevation
-2/2 stress from heart failure
Atrial Fibrillation
-continue ART GILDER Metoprolol, Eliquis
GERD
-ART GILDER Protonix
Recent UTI
-completed course of Levaquin
Anxiety
-ART GILDER Lexapro
HLD
-ART GILDER Atorvastatin
DVT PPx Eliquis
DNR, intubation OK - discussed at bedside on admission
Anticipated Discharge: Within 24 hours
Subjective/Interval History
-
Date of Service: January 29, 2024
Feels short of breath today, on ambulation. Mild wheezing, tightness
Objective Data
-
Labs:
Laboratory Results
01/29/24
06:03
Sodium 141
Potassium 3.9
Chloride 94 L
Carbon Dioxide 37 H
BUN 66 H
Creatinine 1.0
Glucose 85
Calcium 8.6
Vital Signs:
Vital Signs
Temp Pulse Resp BP Pulse Ox
97.4 F 78 16 140/66 90
01/29/24 07:54 01/29/24 11:57 01/29/24 11:57 01/29/24 07:54 01/29/24 11:57
I&O
01/28/24 01/29/24 01/30/24
06:59 06:59 06:59
Intake Total 1300 / 1300
Balance 1300 / 1300
Review of Systems
-
History Source: Patient
All other systems: Not reviewed unless documented
Physical Exam
-
General: Other (mildly tachpneic )
HEENT: PERRLA
Respiratory: Rales and Decreased Breath Sounds
Cardiac: Regular Rhythm, S1/S2 and JVD
GI: Soft and Nontender
Musculoskeletal: No Edema and Other (diffuse bruising from prior fall )
Skin: Warm and Dry; Negative Rash
Neuro: AO x 3
Psych: Calm
[2024-01-29 15:30] VITALS: BP 130/66
[2024-01-29 15:54] LABS: Vitamin B1, Whole Blood 134 nmol/L (70-180)
--- NOTE | 2024-01-29 16:29 | RESPNOTE ---
Respiratory: Patient SpO2 94% at rest on 4 LPM Oygen nasal cannula. Patient stood up for walk desaturation on 4 LPM to 84%. Increased to 6 LPM at rest SpO2 95%. Patient walked 120 feet desaturation to 85% on 6 LPM, with HANDLEY. RN made aware. Took
patient 3-4 minutes to recover. Returned patient back to 4 LPM SpO2 92%.
[2024-01-29] MEDS: LIPITOR 40 MG PO (17:03)
[2024-01-29] MEDS: MELATONIN 5 MG PO (22:29)
[2024-01-29 22:53] VITALS: BP 120/55
[2024-01-30] MEDS: SYNTHROID 88 MCG PO (05:25)
[2024-01-30 05:45] VITALS: BMI 25.2
[2024-01-30 07:19] VITALS: BP 123/58
[2024-01-30] MEDS: SPIRIVA RESPIMAT 2.5 MCG 2 PUFF INH (07:46)
[2024-01-30] MEDS: SYMBICORT 160/4.5 MCG INHALER 2 PUFF INH (07:46)
[2024-01-30] MEDS: DUONEB 3 ML INH ×3 (07:46→15:26)
[2024-01-30 07:56] LABS: Hematocrit 30.5 % (37.0-47.0); Hemoglobin 9.5 g/dL (12.0-16.0); Mean Corp Hgb Conc. 31.1 g/dL (33.0-37.0); Mean Corpuscular Hgb 30.3 pg (27.0-31.0); Mean Corpuscular Volume 97.1 fL (81.0-99.0); Platelet Count 327 10^3/uL (130-400); Red Blood Cell Count 3.14 10^6/uL (4.20-5.40); Red Cell Dist. Width 14.9 % (11.5-14.5); White Blood Cell Count 7.2 10^3/uL (4.8-10.8)
[2024-01-30] MEDS: LIDOCAINE 4% PATCH 1 PATCH TOPICAL (08:47)
[2024-01-30] MEDS: LASIX 80 MG PO (08:47)
[2024-01-30] MEDS: PROTONIX 40 MG PO (08:48)
[2024-01-30] MEDS: SENOKOT-S 1 TABLET PO (08:48)
[2024-01-30] MEDS: TYLENOL 1000 MG PO ×2 (08:48→16:06)
[2024-01-30] MEDS: LEXAPRO 5 MG PO (08:48)
[2024-01-30] MEDS: ELIQUIS 5 MG PO (08:49)
[2024-01-30] MEDS: NEURONTIN 300 MG PO (08:49)
[2024-01-30] MEDS: TOPROL XL 50 MG PO (08:49)
[2024-01-30] MEDS: DELTASONE 40 MG PO (08:50)
[2024-01-30 09:09] LABS: Blood Urea Nitrogen 62 mg/dl (7-17); Calcium 8.5 mg/dl (8.4-10.2); Chloride 94 mmol/L (98-107); Estimated Creatinine Clearance 41 ml/min; Glucose 96 mg/dl (70-99); Potassium 4.2 mmol/L (3.5-5.1); Sodium 142 mmol/L (135-145); eGFR > 60.00
[2024-01-30 09:42] LABS: Carbon Dioxide 39 mmol/L (22-30)
[2024-01-30 10:11] VITALS: O2SAT 93
--- NOTE | 2024-01-30 10:54 | CM ---
Chart reviewed and machine adjuster leader case trim spoke with Tyrell, OT contacted for updated notes as requested by Tyrell, Patient has been accepted at [facility] today.
Tyrell
Report [phone]
Plan; Patient to transfer to [facility] at [facility] today.
--- NOTE | 2024-01-30 12:56 | W.PN.HOSP.TC ---
Addendum entered and electronically signed by Dewayne Tavarez MD 01/30/24 16:40:
Non-Ischemic myocardial injury
Original Note:
Today's Communication/Plan
-
PO pred taper
Lasix
bmp in 5 days
F/u Cards, PCP, Pulm outpatient
Assessment / Plan
Assessment / Plan
Ms. Shannan Lopes is a 83 yo woman with hx HFpEF, lung CA s/p radiation, COPD, chronic hypoxic respiratory failure on 4L, atrial fibrillation on Eliquis presents to the ER with shortness of breath found to be in heart failure, suspect COPD
exacerbation contributing as well.
Triage VS: T 98.2, P 82, RR 18, BP 122/66, SpO2 95%
LABS: WBC 9.1, Hg 10.6, PLT 279, Na 143, K+ 5.1, Cl 97, CO2 37, BUN 33, Cr 1.1
AB.26/80/35
CXR
IMPRESSION:
Moderate pulmonary edema with moderate right pleural effusion
Parenchymal airspace disease at the left lung base most consistent with scarring
Acute on chronic hypoxic and hypercarbic respiratory Failure
Right Pleural effusion
Acute COPD Exacerbation
Heart Failure preserved EF, Acute Exacerbation
-flu and covid negative
-although pCO2 reads 80, patient's bicarb is 37 - chronic retainer - she is awake and conversant without significant distress; she is now on her home O2 4L; remains symptomatic on exertion
-TTE with EF 60-65%
-continue IV lasix --> switched to PO dosing (home dose)
-not enough fluid for thoracentesis
-daily weights, strict I/O
-Decadron and Duonebs now - Decadron 4mg q12 hours - Solumedrol iv dose today; switch to PO pred; PO pred taper
-wean to 3L(baseline)
-acapella
-WAREHOUSE PRODUCTION WORKER Trelegy
-Cardiology consult appreciated
-Pulmonary consult appreciated
-PT/OT consults recommend SNF; asking for [facility] per family request
-Outpatient pulm FU at [facility]
Anemia
-Hg stable
Non-Ischemic Troponin Elevation
-2/2 stress from heart failure
Atrial Fibrillation
-continue WAREHOUSE PRODUCTION WORKER Metoprolol, Eliquis
GERD
-WAREHOUSE PRODUCTION WORKER Protonix
Recent UTI
-completed course of Levaquin
Anxiety
-WAREHOUSE PRODUCTION WORKER Lexapro
HLD
-WAREHOUSE PRODUCTION WORKER Atorvastatin
DVT PPx Eliquis
DNR, intubation OK - discussed at bedside on admission
More than 30 minutes spent in discharge including
Final examination of the patient
Summarizing hospital stay
Instructions for continuing care to all relevant caregivers
Preparation of discharge records, prescriptions, and referral forms
Total time spent (35 in minutes):
Anticipated Discharge: Today
Subjective/Interval History
-
Date of Service: January 30, 2024
No acute events overnight, breathing is better, no wheezing on auscultation
Objective Data
-
Labs:
Laboratory Results
01/30/24
06:26
WBC 7.2
Hgb 9.5 L
Hct 30.5 L
Plt Count 327
Sodium 142
Potassium 4.2
Chloride 94 L
Carbon Dioxide 39 H
BUN 62 H
Creatinine 0.9
Glucose 96
Calcium 8.5
Vital Signs:
Vital Signs
Temp Pulse Resp BP Pulse Ox
97.5 F 77 16 123/58 98
01/30/24 07:19 01/30/24 11:48 01/30/24 11:48 01/30/24 07:19 01/30/24 08:08
I&O
01/29/24 01/30/24 01/31/24
06:59 06:59 06:59
Intake Total 1300 / 1300 1080 / 1080
Balance 1300 / 1300 1080 / 1080
Review of Systems
-
History Source: Patient
All other systems: Not reviewed unless documented
Physical Exam
-
General: Other
HEENT: PERRLA
Respiratory: Decreased Breath Sounds
Cardiac: Regular Rhythm and S1/S2
GI: Soft and Nontender
Musculoskeletal: No Edema and Other (diffuse bruising from prior fall )
Skin: Warm and Dry; Negative Rash
Neuro: AO x 3
Psych: Calm
Data Reviewed
-
Diagnostic Radiology: Report Reviewed by me
Labs: Labs Reviewed by me
--- NOTE | 2024-01-30 13:02 | W.DS.TRANS ---
DC Summary - Supportability Engineer
-
Discharge Instructions:
Discharge Diagnosis/Procedures Acute on chronic hypoxic and hypercarbic
respiratory Failure
Right Pleural effusion
Acute COPD Exacerbation
Heart Failure preserved EF, Acute Exacerbation
Diet Low Cholesterol,Low Fat,Restrict fluids to 64 oz
Activity As tolerated
Blood Work cbc, bmp in 3-5 days with PCP
Instructions: *CBC Heart Failure Instructions
Stand-Alone Forms:
Changes to Home Medications: Yes
Discharge Medications:
DC Medications w/original date entered in [employer]
albuterol sulfate 90 mcg/actuation aerosol inhaler 2 puff inhalation R Q4HPRN PRN shortness of breath 09/05/19
polyethylene glycol 3350 17 gram oral powder packet 17 grams PO DAILYPRN PRN constipation 11/15/20
acetaminophen 500 mg tablet (Tylenol Extra Strength) 500 mg PO Q6HPRN PRN mild pain/fever 11/23/20
atorvastatin 40 mg tablet 40 mg PO QPM High cholesterol 12/03/20
ferrous sulfate 325 mg (65 mg iron) tablet (FeroSul) 325 mg PO NOON Supplement 12/29/20
gabapentin 300 mg capsule 300 mg PO BID Neurological Condition 01/18/21
ipratropium 0.5 mg-albuterol 3 mg (2.5 mg base)/3 mL nebulization soln 3 ml inhalation R Q4HPRN PRN sob 01/18/21
denosumab 60 mg/mL subcutaneous syringe (Prolia) 60 mg SC [id number] Osteoporosis 05/06/21
escitalopram oxalate 5 mg tablet 5 mg PO DAILY depression/anxiety 01/24/24
fexofenadine 180 mg tablet 180 mg PO DAILY Allergies 01/24/24
fluticasone fur. 200 mcg-umeclid 62.5 mcg-vilant 25 mcg inhalat.powder (Trelegy Ellipta) 1 inh inhalation R DAILY Lung/Breathing Issues 01/24/24
furosemide 80 mg tablet 80 mg PO DAILY Fluid Retention/Swelling 01/24/24
levothyroxine 88 mcg tablet 88 mcg PO DAILY Thyroid 01/24/24
methocarbamol 500 mg tablet 500 mg PO TID pain/muscle spasm 01/24/24
pantoprazole 40 mg tablet,delayed release 40 mg PO BID Gastrointestinal Issue 01/24/24
apixaban 5 mg tablet (Eliquis) 5 mg PO BID #0 tabs 01/30/24
lidocaine 4 % topical patch 1 patch topical DAILY #0 ea 01/30/24
metoprolol succinate 50 mg tablet,extended release 24 hr 50 mg PO DAILY #0 tabs 01/30/24
prednisone 10 mg tablet See Rx Instructions .Route .COMPLEX #30 tabs 01/30/24
Home Medication Changes
metoprolol succinate 50 mg tablet,extended release 24 hr 50 mg PO DAILY #0 tabs 01/30/24
prednisone 10 mg tablet See Rx Instructions .Route .COMPLEX #30 tabs 01/30/24
Pending Results: No
[2024-01-30 15:04] VITALS: BP 116/61
== END 2024-01-30 17:11 | DRG 291 ==
LOC: 4 WEST ACU 17:14
PROVIDERS: Emergency Medicine; ADMITTING PHYSICIAN Student in an Organized Health Care Education/Training Program; ATTENDING PHYSICIAN Internal Medicine; CONSULT PHYSICIAN Internal Medicine Cardiovascular Disease; CONSULT PHYSICIAN Internal Medicine Critical Care Medicine; CONSULT PHYSICIAN Physical Medicine & Rehabilitation; EMERGENCY PHYSICIAN Student in an Organized Health Care Education/Training Program; FAMILY PHYSICIAN Family Medicine
DX: I11.0 Hypertensive heart disease with heart failure (principal); I50.33 Acute on chronic diastolic (congestive) heart failure; J96.21 Acute and chronic respiratory failure with hypoxia; J96.22 Acute and chronic respiratory failure with hypercapnia; J44.1 Chronic obstructive pulmonary disease with (acute) exacerbation; N39.0 Urinary tract infection, site not specified; Z66 Do not resuscitate; I5A Non-ischemic myocardial injury (non-traumatic); D64.9 Anemia, unspecified; I48.0 Paroxysmal atrial fibrillation; K21.9 Gastro-esophageal reflux disease without esophagitis; F41.9 Anxiety disorder, unspecified; E89.0 Postprocedural hypothyroidism; I25.10 Atherosclerotic heart disease of native coronary artery without angina pectoris; D72.819 Decreased white blood cell count, unspecified; Z11.52 Encounter for screening for COVID-19; Z92.3 Personal history of irradiation; Z87.891 Personal history of nicotine dependence; Z85.118 Personal history of other malignant neoplasm of bronchus and lung; Z79.899 Other long term (current) drug therapy; Z79.890 Hormone replacement therapy; Z79.01 Long term (current) use of anticoagulants; Z79.51 Long term (current) use of inhaled steroids
CPT/HCPCS: 71045; 76604; 80048; 80053; 80061; 81003; 81015; 82247; 82607; 82728; 82746; 82805; 83540; 83550; 83735; 83880; 84425; 84484; 85018; 85025; 85027; 85045; 87086; 87147; 87502; 87811; 93005; 93306; 94640; 94660; 96374; 97163; 97167; 97530; 97535; 99291

== ENCOUNTER 2024-03-10 15:43 | Emergency (ER) | payer MEDICARE, BC, SELFPAY ==
[2024-03-10 15:59] VITALS: BP 126/65
--- NOTE | 2024-03-10 17:46 | CM ---
CM consult placed to confirm patient's hospice services. Patient shared with attending provider that she is 'revoked' from hospice services. CM introduced self and role. A female family member also in room. Patient confirmed she is with [facility].
CM reached out to payroll assistant weight control lecturer, Patrizia, to confirm that patient is with their services. Patrizia explained that patient is still with hospice services. Shannan was educated that after her fall, if she came to the hospital, was evaluated and
admitted and decided to seek further treatment then she would have to revoke her hospice services.
Patient is aware of above.
Above shared with attending provider, Ha Lynch.
ANTICIPATED DISCHARGE PLAN: Return home with hospice vs. being admitted to hospital to seek further treatment, pending studies.
[2024-03-10 19:06] VITALS: BP 150/103
--- NOTE | 2024-03-10 19:36 | ED.GENMED ---
History of Present Illness
General
Chief Complaint: Fall
Time Seen by Provider: 03/10/24 16:50
History of Present Illness
History of Present Illness:
83-year-old female presents to the emergency department after multiple falls in the past 2 days. She is currently on hospice due to end-stage COPD. Fell yesterday striking her head on on the ground. Complaining of left shoulder and left elbow
pain at this time.
Past History
Past History
ED Past Medical History: Cancer (lung), CHF, COPD, HTN, Hypothyroidism, Other (Pulmonary HTN, Anemia, PNA, R pleural effusion) and Other (CKD); Negative OR
ED Past Surgical History: Appendectomy, Gynecological and Other (thyroidectomy, AAA repair)
Social History
Tobacco: Former smoker
Alcohol: None
Drug: None
Personal:
Living: with family (daughter is staying with her)
Employment: Retired
Family History
Family History: Other (With lymphoma grandfather with lung cancer, grandfather with diabetes, father with a stroke )
Review of Systems
Review of Systems
Allergies reviewed?: Yes
All Other Systems: ROS reviewed and negative except as documented in HPI and ROS
Phy Exam
Physical Exam
Physical Exam:
GEN: Well appearing, NAD, WDWN
HEENT: Oral mucosa moist, no scleral icterus
Cardiac: Regular rate
Lung: No respiratory distress, no tachypnea
MSK: No gross deformity or injuries. Minor ecchymosis to the left shoulder with no gross deformities. Left elbow range of motion is normal.
Skin: Good color, no pallor or jaundice, no rashes
Neuro: AO x3, moves all extremities freely
Psych: Calm, cooperative
Course
Orders/Labs/Results
Orders:
Orders
03/10/24 16:[address] Cervical Spine W/o Iv Contr Urgent
Comment:
Reason For Exam: fall, neck pain
CT Head W/o Iv Contrast Urgent
Comment:
Reason For Exam: fall on Eliquis
CR Shoulder - Left Min 2 View* Urgent
Comment:
Reason For Exam: fall
03/10/24 17:09
Case Management Consult ONCE
Case Management Consult: Hospice
Hospice: Evaluation and treat
03/10/24 19:50
Urinalysis Reflex To Culture Urgent
Date Specimen was Collected: 03/10/24
Time Specimen was Collected: 19:40
Vital Signs
Initial and Last Documented VS:
Initial Vital Signs
Temp Pulse Resp
97 F 82 20
03/10/24 15:53 03/10/24 15:53 03/10/24 15:53
Last Documented Vital Signs
Temp Pulse Resp BP Pulse Ox
97 F 82 20 148/69 93
03/10/24 15:53 03/10/24 15:53 03/10/24 15:53 03/10/24 20:00 03/10/24 19:19
MDM/Problems Addressed
MDM/Problems Addressed:
Imaging is unremarkable, elbow exam benign no concern for fracture. Discharged home via EMS due to oxygen needs
*Critical Care Note
Total Time (30-74mins, 75-104mins- exclusive of procedures): Not Applicable
ED Attending Note
-
Portions of this chart may have been created with voice recognition software.� Occasional wrong word or��sound alike� substitutions may have occurred due to the inherent limitations of voice recognition software.
Discharge Plan
Departure
Patient Disposition: Home (Routine Discharge)
Date of Disposition: 03/10/24
Time of Disposition: 20:04
Patient with high blood pressure during this ER visit?: No
Discharge Problem:
Fall
Instructions: Preventing falls in adults
Prescriptions:
No Action
albuterol sulfate 1 PUFF HFA aerosol inhaler
2 puff inhalation R Q4HPRN PRN (Reason: shortness of breath)
polyethylene glycol 3350 17 GRAMS powder in packet
17 grams PO DAILYPRN PRN (Reason: constipation)
atorvastatin 40 MG tablet
40 mg PO QPM
ipratropium-albuterol 3 ML solution for nebulization
3 ml inhalation R Q4HPRN PRN (Reason: sob)
gabapentin 300 MG capsule
300 mg PO BID
Prolia 60 MG/ML syringe
60 mg SC Q2JRPID
fexofenadine 180 mg Tablet
180 mg PO DAILY
levothyroxine 88 mcg Tablet
88 mcg PO DAILY
furosemide 80 mg Tablet
80 mg PO DAILY
escitalopram oxalate 5 mg Tablet
5 mg PO DAILY
Trelegy Ellipta 200-62.5-25 mcg Blister With Device
1 inh INHALATION R DAILY
pantoprazole 40 MG tablet,delayed release (DR/EC)
40 mg PO BID
lidocaine 4 % Adhesive Patch,Medicated
1 patch topical DAILY Qty: 0 0RF
potassium chloride 20 mEq Tablet,Er Particles/Crystals
20 meq PO DAILY 30 Days Qty: 30 0RF
docusate sodium 100 mg Capsule
100 mg PO BID 30 Days Qty: 60 0RF
metoprolol succinate 50 mg Tablet Extended Release 24 Hr
50 mg PO DAILY Qty: 0 0RF
acetaminophen [Tylenol Extra Strength] 500 MG tablet
500 mg PO Q6HPRN PRN (Reason: mild pain) Qty: 0 0RF
Eliquis 5 mg Tablet
5 mg PO BID Qty: 0 0RF
Referrals:
Angie Peters MD [Family Provider] -
Interventions
Interventions:
*Risk Screen - Suicide Last Done: 03/10/24 15:53
*General Assessment Last Done: 03/10/24 15:53
*Neglect/Abuse Screening Last Done: 03/10/24 15:53
Discharge Date and Time
Print Language: SWEDISH
[2024-03-10 19:51] VITALS: BP 123/82
[2024-03-10 20:00] VITALS: BP 148/69
[2024-03-10 20:01] LABS: Urine Albumin Negative (Neg - Trace); Urine Bilirubin Negative (Negative); Urine Character Clear (Clear); Urine Color Yellow; Urine Glucose Negative (Negative); Urine Ketone Negative (Negative); Urine Leukocyte Negative (Negative); Urine Nitrite Negative (Negative); Urine Occult Blood Negative (Negative); Urine Urobilinogen Negative (Neg - 1+)
[2024-03-11 03:35] VITALS: BP 134/71
== END 2024-03-11 05:04 | disposition home or self-care (01) ==
LOC: EMR 15:43
PROVIDERS: Physician Assistant; EMERGENCY PHYSICIAN Emergency Medicine; FAMILY PHYSICIAN Family Medicine
DX: S09.90XA Unspecified injury of head, initial encounter (principal); S40.012A Contusion of left shoulder, initial encounter; M25.522 Pain in left elbow; M25.512 Pain in left shoulder; W19.XXXA Unspecified fall, initial encounter; J44.9 Chronic obstructive pulmonary disease, unspecified; I13.0 Hypertensive heart and chronic kidney disease with heart failure and stage 1 through stage 4 chronic kidney disease, or unspecified chronic kidney disease; N18.9 Chronic kidney disease, unspecified; I50.9 Heart failure, unspecified; E03.9 Hypothyroidism, unspecified; I27.20 Pulmonary hypertension, unspecified; D64.9 Anemia, unspecified; R29.6 Repeated falls; Z85.118 Personal history of other malignant neoplasm of bronchus and lung; Z87.01 Personal history of pneumonia (recurrent); Z87.891 Personal history of nicotine dependence; Z79.01 Long term (current) use of anticoagulants
CPT/HCPCS: 99284; 70450; 72125; 73030; 81003